=== PATIENT | male | born 1945 | race Caucasian/White ===

== ENCOUNTER 2016-11-20 12:26 | Inpatient (IN) | payer MEDICARE, MEDICAID ==
[~2016-11-20] VITALS: Ht 167.6 cm; Wt 99.6 kg
[~2016-11-20 12:26] MED LIST: ACET-784 PO; AMIO200 PO; ASPI-12 PO; ASPI81TA2 PO; AUD NEB; CARV6 PO; DSS100 PO; FURO20 PO; HEP5KI SQ; IPRNEB IH; MOM30 PO; PANT40TA25 PO; PRED10 PO; TRAM50TA4 PO; ZOLP5 PO
[2016-11-20] MEDS ORDERED: IPRATROPIUM BROMIDE 0.5 MG/2.5 ML NEB SOLUTION NEB ONE (12:30)
[2016-11-20] MEDS ORDERED: ALBUTEROL SULFATE 5 MG/ML 20 ML NEB SOLN [BULK] NEB ONE (12:30)
[2016-11-20] MEDS ORDERED: MethylPREDNISolone SOD SUCC 125 MG/2 ML VIAL IVP ONE (12:45)
[2016-11-20 12:58] LABS: EOSINOPHILS % (AUTO) 9.6 % (1.0-6.0); HEMATOCRIT 43.8 % (41-53); HEMOGLOBIN 14.4 g/dL (13.5-17.5); LYMPHOCYTES # (AUTO) 1.4 K/uL (1.0-4.8); MEAN CORPUSCULAR HEMOGLOBIN 32.3 pg (26.0-34.0); MEAN CORPUSCULAR HGB CONC 32.9 G/dL (31.0-37.0); MEAN CORPUSCULAR VOLUME 98 fL (80-100); MONOCYTES # (AUTO) 0.5 K/uL (0.1-1.0); MONOCYTES % (AUTO) 6.7 % (2.0-9.0); NEUTROPHILS # (AUTO) 4.2 K/uL (1.8-7.7); NEUTROPHILS % (AUTO) 61.7 % (40.0-70.0); PLATELET COUNT (AUTO) 176 K/uL (150-450); RED BLOOD CELL COUNT(AUTO) 4.46 MIL/uL (4.50-5.90); WHITE BLOOD COUNT (AUTO) 6.8 K/uL (4.5-11.0)
[2016-11-20 13:16] LABS: ANION GAP 9 mmol/L (8-16); CALCIUM, TOTAL 8.2 mg/dL (8.8-10.5); CARBON DIOXIDE 27 mmol/L (22-29); CHLORIDE 99 mmol/L (98-107); CREATININE 1.06 mg/dL (0.60-1.30); GLOMERULAR FILTR. RATE CALC > 60 mL/min (>60); POTASSIUM 4.1 mmol/L (3.5-5.1); SODIUM SERUM 135 mmol/L (136-145); UREA NITROGEN, BLOOD 19 mg/dL (7-18)
[2016-11-20 13:32] LABS: B-TYPE NATRIURETIC PEPTIDE 125 pg/mL (0-100)
[2016-11-20 13:43] LABS: ALANINE AMINOTRANSFERASE 18 U/L (12-78); ALBUMIN 4.1 g/dL (3.4-5.0); ASPARTATE AMINOTRANSFERASE 23 U/L (15-37); BILIRUBIN,TOTAL 1.1 mg/dL (0.1-1.0); CREATINE KINASE MB 1.1 ng/mL (0-5); CREATINE KINASE, TOTAL 162 U/L (39-308)
[2016-11-20 13:51] LABS: ABG A-A DIFF O2 308.7 mmHg (10-20.0); ABG BASE EXCESS 1.5 mmol/L (-2.0-3.0); ABG HCO3 25.8 mmol/L (22.0-26.0); ABG OXYHEMOGLOBIN 93.6 % (94.0-100.0); ABG PCO2 38 mmHg (35-45); ABG PH 7.443 (7.35-7.450); TEMPERATURE, FAHRENHEIT, BG 97.9 FAHREN (96.0-98.6)
[2016-11-20 13:52] LABS: ALLEN TEST, BLOOD GAS Positive
[2016-11-20 13:53] LABS: IPAP, BG 14 cm H2O
[2016-11-20] MEDS ORDERED: MORPHINE SULFATE 2 MG/ML SYRINGE ONE (14:58)
[2016-11-20] MEDS ORDERED: ACETAMINOPHEN 500 MG TABLET ONE (16:40)
[2016-11-20] MEDS ORDERED: ONDANSETRON HCL 4 MG/2 ML VIAL IVP PRN (19:00)
[2016-11-20] MEDS ORDERED: MAGNESIUM HYDROXIDE SUSPENSION 30 ML UDCUP PO PRN (19:00)
[2016-11-20] MEDS ORDERED: BISACODYL 10 MG RECTAL RECTAL SUPPOSITORY PR PRN (19:00)
[2016-11-20] MEDS ORDERED: ALBUTEROL SULFATE 2.5 MG/0.5 ML NEB SOLUTION NEB PRN (19:00)
[2016-11-20 20:00] LABS: APPEARANCE,URINE CLOUDY (CLEAR); GLUCOSE, URINE (UA) NEGATIVE (NEGATIVE); KETONES,URINE NEGATIVE (NEGATIVE); LEUKOCYTE ESTERASE ,URINE NEGATIVE (NEGATIVE); OCCULT BLOOD,URINE TRACE (NEGATIVE); PROTEIN,URINE TRACE (NEGATIVE)
[2016-11-20] MEDS: ALBUTEROL SULFATE 2.5 MG/0.5 ML NEB SOLUTION NEB SCH (20:00)
[2016-11-20] MEDS: IPRATROPIUM BROMIDE 0.5 MG/2.5 ML NEB SOLUTION NEB SCH (20:00)
[2016-11-20 20:02] LABS: ADD UA MICROSCOPIC YES
[2016-11-20 20:10] LABS: RBC,URINE None Seen /HPF (0-2); WBC,URINE 0-2 /HPF (0-5)
[2016-11-20 20:36] VITALS: BP 159/93
[2016-11-20] MEDS ORDERED: SODIUM CHLORIDE 0.9% 250 ML IV ONE (22:21)
[2016-11-20] MEDS: AZITHROMYCIN 500 MG/NS 250 ML IV SCH (22:28)
[2016-11-20] MEDS: MethylPREDNISolone SOD SUCC 125 MG/2 ML VIAL IVP SCH (23:22)
[2016-11-20] MEDS: ZOLPIDEM TARTRATE 10 MG TABLET PO PRN (23:22)
[2016-11-20] MEDS: HEPARIN SODIUM,PORCINE 5,000 UNITS/ML VIAL SQ SCH (23:22)
[2016-11-20 23:38] VITALS: BP 150/94
[2016-11-21] VITALS (7 sets, daily range): BP systolic 152–165; BP diastolic 79–99
[2016-11-21] MEDS: IPRATROPIUM BROMIDE 0.5 MG/2.5 ML NEB SOLUTION NEB SCH ×4 (02:24→19:46)
[2016-11-21] MEDS: ALBUTEROL SULFATE 2.5 MG/0.5 ML NEB SOLUTION NEB SCH ×4 (02:24→19:46)
[2016-11-21] MEDS: MethylPREDNISolone SOD SUCC 125 MG/2 ML VIAL IVP SCH ×4 (06:03→23:09)
[2016-11-21] MEDS: ASPIRIN 81 MG CHEWABLE TABLET PO SCH (08:20)
[2016-11-21] MEDS: HEPARIN SODIUM,PORCINE 5,000 UNITS/ML VIAL SQ SCH ×3 (08:20→23:09)
[2016-11-21] MEDS: DOCUSATE SODIUM 100 MG CAPSULE PO SCH ×2 (08:21→20:23)
[2016-11-21] MEDS: FUROSEMIDE 20 MG TABLET PO SCH (08:21)
[2016-11-21] MEDS: CARVEDILOL 6.25 MG TABLET PO SCH ×2 (08:21→20:23)
[2016-11-21] MEDS: PANTOPRAZOLE SODIUM 40 MG DR TABLET PO SCH (08:21)
[2016-11-21] MEDS: ACETAMINOPHEN 325 MG TABLET PO PRN (08:21)
[2016-11-21] MEDS: AMIODARONE HCL 200 MG TABLET PO SCH (08:21)
[2016-11-21] MEDS ORDERED: 0.9% SODIUM CHLORIDE 10 ML SYRINGE IVP PRN (13:30)
[2016-11-21] MEDS: FLUTICASONE/VILANTEROL 100-25 MCG/INH INHALER [14] IH SCH (15:22)
[2016-11-21] MEDS: HydrALAZINE HCL 20 MG/ML VIAL IVP PRN ×2 (15:23→23:10)
[2016-11-21] MEDS ORDERED: BENZONATATE 100 MG CAPSULE PO SCH (16:00)
[2016-11-21] MEDS: BENZONATATE 100 MG CAPSULE PO SCH (20:23)
[2016-11-21] MEDS: OXYGEN THERAPY IH SCH (20:24)
[2016-11-21] MEDS: AZITHROMYCIN 500 MG/NS 250 ML IV SCH (20:32)
[2016-11-21] MEDS: ZOLPIDEM TARTRATE 10 MG TABLET PO PRN (22:22)
[2016-11-22] MEDS: IPRATROPIUM BROMIDE 0.5 MG/2.5 ML NEB SOLUTION NEB SCH ×4 (02:00→20:00)
[2016-11-22] MEDS: ALBUTEROL SULFATE 2.5 MG/0.5 ML NEB SOLUTION NEB SCH ×4 (02:00→20:00)
[2016-11-22 05:21] VITALS: BP 136/74
[2016-11-22] MEDS: MethylPREDNISolone SOD SUCC 125 MG/2 ML VIAL IVP SCH ×4 (06:00→23:44)
[2016-11-22 07:00] LABS: EOSINOPHILS % (AUTO) 0 % (1.0-6.0); HEMATOCRIT 38.3 % (41-53); HEMOGLOBIN 12.5 g/dL (13.5-17.5); LYMPHOCYTES # (AUTO) 0.9 K/uL (1.0-4.8); LYMPHOCYTES % (AUTO) 5.9 % (22.0-44.0); MEAN CORPUSCULAR HEMOGLOBIN 32.3 pg (26.0-34.0); MEAN CORPUSCULAR HGB CONC 32.6 G/dL (31.0-37.0); MEAN CORPUSCULAR VOLUME 99 fL (80-100); MONOCYTES # (AUTO) 0.3 K/uL (0.1-1.0); MONOCYTES % (AUTO) 1.9 % (2.0-9.0); NEUTROPHILS # (AUTO) 13.4 K/uL (1.8-7.7); PLATELET COUNT (AUTO) 136 K/uL (150-450); RED BLOOD CELL COUNT(AUTO) 3.87 MIL/uL (4.50-5.90); RED CELL DISTRIBUTION WIDTH 16.5 % (11.5-14.5); WHITE BLOOD COUNT (AUTO) 14.5 K/uL (4.5-11.0)
[2016-11-22 07:04] LABS: NEUTROPHILS % (AUTO) 92.2 % (40.0-70.0)
[2016-11-22 07:23] LABS: ANION GAP 7 mmol/L (8-16); CALCIUM, TOTAL 7.4 mg/dL (8.8-10.5); CARBON DIOXIDE 28 mmol/L (22-29); CHLORIDE 102 mmol/L (98-107); CREATININE 0.97 mg/dL (0.60-1.30); GLOMERULAR FILTR. RATE CALC > 60 mL/min (>60); PHOSPHORUS 2.8 mg/dL (2.5-4.9); SODIUM SERUM 137 mmol/L (136-145); THYROID STIMULATING HORMONE 1.31 uIU/mL (0.36-3.74); UREA NITROGEN, BLOOD 26 mg/dL (7-18)
[2016-11-22 08:21] VITALS: BP 163/79
[2016-11-22 08:22] LABS: B-TYPE NATRIURETIC PEPTIDE 314 pg/mL (0-100)
[2016-11-22] MEDS: FLUTICASONE/VILANTEROL 100-25 MCG/INH INHALER [14] IH SCH (08:30)
[2016-11-22] MEDS: HEPARIN SODIUM,PORCINE 5,000 UNITS/ML VIAL SQ SCH ×3 (08:30→23:44)
[2016-11-22] MEDS: OXYGEN THERAPY IH SCH ×2 (08:30→20:40)
[2016-11-22] MEDS: DOCUSATE SODIUM 100 MG CAPSULE PO SCH ×2 (08:31→20:47)
[2016-11-22] MEDS: CARVEDILOL 6.25 MG TABLET PO SCH ×2 (08:31→20:47)
[2016-11-22] MEDS: ASPIRIN 81 MG CHEWABLE TABLET PO SCH (08:31)
[2016-11-22] MEDS: FUROSEMIDE 20 MG TABLET PO SCH (08:31)
[2016-11-22] MEDS: PANTOPRAZOLE SODIUM 40 MG DR TABLET PO SCH (08:31)
[2016-11-22] MEDS: AMIODARONE HCL 200 MG TABLET PO SCH (08:31)
[2016-11-22] MEDS: BENZONATATE 100 MG CAPSULE PO SCH ×3 (08:32→20:47)
[2016-11-22] MEDS: ACETAMINOPHEN 325 MG TABLET PO PRN (09:01)
[2016-11-22 11:17] VITALS: BP 152/84
[2016-11-22] MEDS: AmLODIPine BESYLATE 5 MG TABLET PO SCH (11:43)
[2016-11-22 15:41] VITALS: BP 150/86
[2016-11-22 19:41] VITALS: BP 142/75
[2016-11-22] MEDS: ZOLPIDEM TARTRATE 10 MG TABLET PO PRN (22:30)
[2016-11-22] MEDS: AZITHROMYCIN 500 MG/NS 250 ML IV SCH (22:30)
[2016-11-22 23:51] VITALS: BP 154/78
[2016-11-23] MEDS: ALBUTEROL SULFATE 2.5 MG/0.5 ML NEB SOLUTION NEB SCH ×4 (02:00→19:58)
[2016-11-23] MEDS: IPRATROPIUM BROMIDE 0.5 MG/2.5 ML NEB SOLUTION NEB SCH ×4 (02:00→19:58)
[2016-11-23 04:19] VITALS: BP 138/79
[2016-11-23] MEDS: MethylPREDNISolone SOD SUCC 125 MG/2 ML VIAL IVP SCH ×2 (06:12→11:52)
[2016-11-23 07:20] VITALS: BP 160/92
[2016-11-23] MEDS: PANTOPRAZOLE SODIUM 40 MG DR TABLET PO SCH (09:08)
[2016-11-23] MEDS: CARVEDILOL 6.25 MG TABLET PO SCH ×2 (09:08→21:35)
[2016-11-23] MEDS: AMIODARONE HCL 200 MG TABLET PO SCH (09:08)
[2016-11-23] MEDS: AmLODIPine BESYLATE 5 MG TABLET PO SCH (09:08)
[2016-11-23] MEDS: BENZONATATE 100 MG CAPSULE PO SCH ×3 (09:08→21:35)
[2016-11-23] MEDS: HEPARIN SODIUM,PORCINE 5,000 UNITS/ML VIAL SQ SCH ×3 (09:08→23:44)
[2016-11-23] MEDS: ASPIRIN 81 MG CHEWABLE TABLET PO SCH (09:08)
[2016-11-23] MEDS: DOCUSATE SODIUM 100 MG CAPSULE PO SCH ×2 (09:08→21:35)
[2016-11-23] MEDS: FUROSEMIDE 20 MG TABLET PO SCH (09:10)
[2016-11-23] MEDS: FLUTICASONE/VILANTEROL 100-25 MCG/INH INHALER [14] IH SCH (09:11)
[2016-11-23] MEDS: OXYGEN THERAPY IH SCH ×2 (09:11→19:54)
[2016-11-23] MEDS: HydrALAZINE HCL 20 MG/ML VIAL IVP PRN ×2 (09:11→23:41)
[2016-11-23] MEDS: ACETAMINOPHEN 325 MG TABLET PO PRN ×3 (09:21→22:38)
[2016-11-23 11:10] VITALS: BP 144/90
[2016-11-23 15:35] VITALS: BP 139/88
[2016-11-23] MEDS: MethylPREDNISolone SOD SUCC 40 MG/ML VIAL IVP SCH ×2 (17:50→23:41)
[2016-11-23 19:21] VITALS: BP 146/79
[2016-11-23] MEDS: HYDROCODONE/CHLORPHEN POLIS 10-8 MG/5 ML ORAL.SYG PO PRN (21:35)
[2016-11-23] MEDS: ZOLPIDEM TARTRATE 10 MG TABLET PO PRN (21:35)
[2016-11-23] MEDS: AZITHROMYCIN 500 MG/NS 250 ML IV SCH (21:41)
[2016-11-23 23:39] VITALS: BP 151/96
[2016-11-24] MEDS: ALBUTEROL SULFATE 2.5 MG/0.5 ML NEB SOLUTION NEB SCH ×4 (02:00→20:00)
[2016-11-24] MEDS: IPRATROPIUM BROMIDE 0.5 MG/2.5 ML NEB SOLUTION NEB SCH ×4 (02:00→20:00)
[2016-11-24 04:29] VITALS: BP 146/79
[2016-11-24] MEDS: HYDROCODONE/CHLORPHEN POLIS 10-8 MG/5 ML ORAL.SYG PO PRN (05:55)
[2016-11-24] MEDS: OxyCODONE HCL/ACETAMINOPHEN 5-325 MG TABLET PO PRN (05:55)
[2016-11-24] MEDS: MethylPREDNISolone SOD SUCC 40 MG/ML VIAL IVP SCH (05:55)
[2016-11-24 07:18] VITALS: BP 141/80
[2016-11-24] MEDS: HEPARIN SODIUM,PORCINE 5,000 UNITS/ML VIAL SQ SCH ×3 (07:53→23:48)
[2016-11-24] MEDS: OXYGEN THERAPY IH SCH ×2 (07:53→20:56)
[2016-11-24] MEDS: FUROSEMIDE 20 MG TABLET PO SCH (09:27)
[2016-11-24] MEDS: PredniSONE 20 MG TABLET PO SCH (09:28)
[2016-11-24] MEDS: AMIODARONE HCL 200 MG TABLET PO SCH (09:28)
[2016-11-24] MEDS: PANTOPRAZOLE SODIUM 40 MG DR TABLET PO SCH (09:28)
[2016-11-24] MEDS: AmLODIPine BESYLATE 5 MG TABLET PO SCH (09:28)
[2016-11-24] MEDS: ASPIRIN 81 MG CHEWABLE TABLET PO SCH (09:28)
[2016-11-24] MEDS: CARVEDILOL 6.25 MG TABLET PO SCH ×2 (09:28→20:56)
[2016-11-24] MEDS: FLUTICASONE/VILANTEROL 100-25 MCG/INH INHALER [14] IH SCH (09:29)
[2016-11-24] MEDS: BENZONATATE 100 MG CAPSULE PO SCH ×3 (09:29→20:56)
[2016-11-24] MEDS: DOCUSATE SODIUM 100 MG CAPSULE PO SCH ×2 (09:29→20:56)
[2016-11-24 11:25] VITALS: BP 146/79
[2016-11-24 15:37] VITALS: BP 141/79
[2016-11-24 19:25] VITALS: BP 131/83
[2016-11-24] MEDS ORDERED: IOVERSOL 320 MG/ML 100 ML VIAL ONE (20:01)
[2016-11-24] MEDS ORDERED: SODIUM CHLORIDE 0.9% 100 ML ONE (20:01)
[2016-11-24] MEDS ORDERED: SODIUM CHLORIDE 0.9% 250 ML IV ONE (20:53)
[2016-11-24] MEDS: AZITHROMYCIN 500 MG/NS 250 ML IV SCH (20:56)
[2016-11-24] MEDS: DOXYCYCLINE 100 MG CAPSULE PO SCH (20:56)
[2016-11-24] MEDS: ZOLPIDEM TARTRATE 10 MG TABLET PO PRN (22:38)
[2016-11-24 23:17] VITALS: BP 141/82
[2016-11-25] MEDS: IPRATROPIUM BROMIDE 0.5 MG/2.5 ML NEB SOLUTION NEB SCH ×4 (02:00→20:00)
[2016-11-25] MEDS: ALBUTEROL SULFATE 2.5 MG/0.5 ML NEB SOLUTION NEB SCH ×4 (02:00→20:00)
[2016-11-25 04:30] VITALS: BP 155/81
[2016-11-25 07:13] VITALS: BP 154/87
[2016-11-25 08:25] LABS: BASOPHILS % (AUTO) 0.2 % (0.0-2.0); EOSINOPHILS % (AUTO) 0 % (1.0-6.0); HEMATOCRIT 37.5 % (41-53); HEMOGLOBIN 12.3 g/dL (13.5-17.5); LYMPHOCYTES # (AUTO) 0.9 K/uL (1.0-4.8); LYMPHOCYTES % (AUTO) 11.3 % (22.0-44.0); MEAN CORPUSCULAR HEMOGLOBIN 32.5 pg (26.0-34.0); MEAN CORPUSCULAR HGB CONC 32.8 G/dL (31.0-37.0); MEAN CORPUSCULAR VOLUME 99 fL (80-100); MONOCYTES # (AUTO) 0.5 K/uL (0.1-1.0); MONOCYTES % (AUTO) 6.5 % (2.0-9.0); NEUTROPHILS # (AUTO) 6.9 K/uL (1.8-7.7); PLATELET COUNT (AUTO) 134 K/uL (150-450); RED BLOOD CELL COUNT(AUTO) 3.79 MIL/uL (4.50-5.90); RED CELL DISTRIBUTION WIDTH 15.7 % (11.5-14.5); WHITE BLOOD COUNT (AUTO) 8.4 K/uL (4.5-11.0)
[2016-11-25 08:36] LABS: ANION GAP 6 mmol/L (8-16); CALCIUM, TOTAL 7.2 mg/dL (8.8-10.5); CARBON DIOXIDE 31 mmol/L (22-29); CHLORIDE 101 mmol/L (98-107); POTASSIUM 3.8 mmol/L (3.5-5.1); SODIUM SERUM 138 mmol/L (136-145); UREA NITROGEN, BLOOD 33 mg/dL (7-18)
[2016-11-25] MEDS: DOCUSATE SODIUM 100 MG CAPSULE PO SCH ×2 (08:38→20:45)
[2016-11-25] MEDS: HEPARIN SODIUM,PORCINE 5,000 UNITS/ML VIAL SQ SCH ×2 (08:38→16:07)
[2016-11-25] MEDS: OXYGEN THERAPY IH SCH ×2 (08:38→20:46)
[2016-11-25] MEDS: FLUTICASONE/VILANTEROL 100-25 MCG/INH INHALER [14] IH SCH (08:38)
[2016-11-25] MEDS: FUROSEMIDE 20 MG TABLET PO SCH (08:39)
[2016-11-25] MEDS: AmLODIPine BESYLATE 5 MG TABLET PO SCH (08:39)
[2016-11-25] MEDS: AMIODARONE HCL 200 MG TABLET PO SCH (08:39)
[2016-11-25] MEDS: BENZONATATE 100 MG CAPSULE PO SCH ×3 (08:39→20:46)
[2016-11-25] MEDS: ASPIRIN 81 MG CHEWABLE TABLET PO SCH (08:39)
[2016-11-25] MEDS: CARVEDILOL 6.25 MG TABLET PO SCH ×2 (08:39→20:45)
[2016-11-25] MEDS: DOXYCYCLINE 100 MG CAPSULE PO SCH ×2 (08:40→20:46)
[2016-11-25] MEDS: PredniSONE 20 MG TABLET PO SCH (08:40)
[2016-11-25] MEDS: PANTOPRAZOLE SODIUM 40 MG DR TABLET PO SCH (08:43)
[2016-11-25 08:45] LABS: CREATININE 0.97 mg/dL (0.60-1.30); GLOMERULAR FILTR. RATE CALC > 60 mL/min (>60)
[2016-11-25] MEDS: ACETAMINOPHEN 325 MG TABLET PO PRN (09:22)
[2016-11-25 12:01] VITALS: BP 153/85
[2016-11-25 17:23] VITALS: BP 153/85
[2016-11-25 19:45] VITALS: BP 144/86
[2016-11-25] MEDS: AZITHROMYCIN 500 MG/NS 250 ML IV SCH (20:46)
[2016-11-25] MEDS: ZOLPIDEM TARTRATE 10 MG TABLET PO PRN (22:14)
[2016-11-26] VITALS (7 sets, daily range): BP systolic 138–173; BP diastolic 81–99
[2016-11-26] MEDS: HEPARIN SODIUM,PORCINE 5,000 UNITS/ML VIAL SQ SCH ×3 (01:38→16:23)
[2016-11-26] MEDS: IPRATROPIUM BROMIDE 0.5 MG/2.5 ML NEB SOLUTION NEB SCH ×4 (02:00→20:00)
[2016-11-26] MEDS: ALBUTEROL SULFATE 2.5 MG/0.5 ML NEB SOLUTION NEB SCH ×4 (02:00→20:00)
[2016-11-26 06:27] LABS: BASOPHILS % (AUTO) 0.2 % (0.0-2.0); EOSINOPHILS % (AUTO) 0.1 % (1.0-6.0); HEMATOCRIT 37.9 % (41-53); HEMOGLOBIN 12.4 g/dL (13.5-17.5); LYMPHOCYTES # (AUTO) 1.7 K/uL (1.0-4.8); MEAN CORPUSCULAR HEMOGLOBIN 32.2 pg (26.0-34.0); MEAN CORPUSCULAR HGB CONC 32.6 G/dL (31.0-37.0); MEAN CORPUSCULAR VOLUME 99 fL (80-100); MONOCYTES # (AUTO) 0.6 K/uL (0.1-1.0); MONOCYTES % (AUTO) 8.2 % (2.0-9.0); NEUTROPHILS # (AUTO) 5.5 K/uL (1.8-7.7); NEUTROPHILS % (AUTO) 69.5 % (40.0-70.0); PLATELET COUNT (AUTO) 129 K/uL (150-450); RED BLOOD CELL COUNT(AUTO) 3.84 MIL/uL (4.50-5.90); RED CELL DISTRIBUTION WIDTH 16.2 % (11.5-14.5); WHITE BLOOD COUNT (AUTO) 7.9 K/uL (4.5-11.0)
[2016-11-26 06:54] LABS: ANION GAP 4 mmol/L (8-16); CALCIUM, TOTAL 7.1 mg/dL (8.8-10.5); CARBON DIOXIDE 33 mmol/L (22-29); CHLORIDE 99 mmol/L (98-107); CREATININE 0.96 mg/dL (0.60-1.30); GLOMERULAR FILTR. RATE CALC > 60 mL/min (>60); POTASSIUM 3.8 mmol/L (3.5-5.1); SODIUM SERUM 136 mmol/L (136-145); UREA NITROGEN, BLOOD 27 mg/dL (7-18)
[2016-11-26] MEDS: OXYGEN THERAPY IH SCH ×2 (08:00→20:00)
[2016-11-26] MEDS: FLUTICASONE/VILANTEROL 100-25 MCG/INH INHALER [14] IH SCH (08:57)
[2016-11-26] MEDS: ACETAMINOPHEN 325 MG TABLET PO PRN ×2 (08:59→16:21)
[2016-11-26] MEDS: DOCUSATE SODIUM 100 MG CAPSULE PO SCH ×3 (08:59→20:16)
[2016-11-26] MEDS: CARVEDILOL 6.25 MG TABLET PO SCH ×2 (08:59→21:58)
[2016-11-26] MEDS: BENZONATATE 100 MG CAPSULE PO SCH ×3 (08:59→20:14)
[2016-11-26] MEDS: ASPIRIN 81 MG CHEWABLE TABLET PO SCH (09:00)
[2016-11-26] MEDS: PredniSONE 20 MG TABLET PO SCH (09:00)
[2016-11-26] MEDS: DOXYCYCLINE 100 MG CAPSULE PO SCH ×2 (09:00→21:02)
[2016-11-26] MEDS: PANTOPRAZOLE SODIUM 40 MG DR TABLET PO SCH (09:00)
[2016-11-26] MEDS: AmLODIPine BESYLATE 5 MG TABLET PO SCH (09:00)
[2016-11-26] MEDS: AMIODARONE HCL 200 MG TABLET PO SCH (09:00)
[2016-11-26] MEDS: FUROSEMIDE 20 MG TABLET PO SCH (09:00)
[2016-11-26] MEDS ORDERED: HYDROCODONE/CHLORPHEN POLIS 10-8 MG/5 ML ORAL.SYG PO PRN (11:00)
[2016-11-26] MEDS: OxyCODONE HCL/ACETAMINOPHEN 5-325 MG TABLET PO PRN (20:14)
[2016-11-26] MEDS ORDERED: SODIUM CHLORIDE 0.9% 250 ML IV ONE (20:56)
[2016-11-26] MEDS: AZITHROMYCIN 500 MG/NS 250 ML IV SCH (21:58)
[2016-11-26] MEDS: ZOLPIDEM TARTRATE 10 MG TABLET PO PRN (22:01)
[2016-11-27] MEDS: HEPARIN SODIUM,PORCINE 5,000 UNITS/ML VIAL SQ SCH ×4 (00:22→23:48)
[2016-11-27 00:25] VITALS: BP 142/73
[2016-11-27] MEDS: ALBUTEROL SULFATE 2.5 MG/0.5 ML NEB SOLUTION NEB SCH ×4 (02:00→20:00)
[2016-11-27] MEDS: IPRATROPIUM BROMIDE 0.5 MG/2.5 ML NEB SOLUTION NEB SCH ×4 (02:00→20:00)
[2016-11-27 04:14] VITALS: BP 141/92
[2016-11-27 06:51] LABS: BASOPHILS % (AUTO) 0.2 % (0.0-2.0); EOSINOPHILS % (AUTO) 0.4 % (1.0-6.0); HEMATOCRIT 37.5 % (41-53); HEMOGLOBIN 12.3 g/dL (13.5-17.5); LYMPHOCYTES # (AUTO) 2.1 K/uL (1.0-4.8); LYMPHOCYTES % (AUTO) 24.5 % (22.0-44.0); MEAN CORPUSCULAR HEMOGLOBIN 32.4 pg (26.0-34.0); MEAN CORPUSCULAR HGB CONC 32.7 G/dL (31.0-37.0); MEAN CORPUSCULAR VOLUME 99 fL (80-100); MONOCYTES # (AUTO) 0.7 K/uL (0.1-1.0); NEUTROPHILS # (AUTO) 5.8 K/uL (1.8-7.7); NEUTROPHILS % (AUTO) 66.9 % (40.0-70.0); PLATELET COUNT (AUTO) 132 K/uL (150-450); RED BLOOD CELL COUNT(AUTO) 3.79 MIL/uL (4.50-5.90); RED CELL DISTRIBUTION WIDTH 15.4 % (11.5-14.5); WHITE BLOOD COUNT (AUTO) 8.7 K/uL (4.5-11.0)
[2016-11-27 07:26] LABS: ANION GAP 4 mmol/L (8-16); CALCIUM, TOTAL 7.2 mg/dL (8.8-10.5); CARBON DIOXIDE 33 mmol/L (22-29); CHLORIDE 98 mmol/L (98-107); CREATININE 0.98 mg/dL (0.60-1.30); GLOMERULAR FILTR. RATE CALC > 60 mL/min (>60); SODIUM SERUM 135 mmol/L (136-145); UREA NITROGEN, BLOOD 22 mg/dL (7-18)
[2016-11-27] MEDS: BENZONATATE 100 MG CAPSULE PO SCH ×3 (07:54→20:07)
[2016-11-27] MEDS: FLUTICASONE/VILANTEROL 100-25 MCG/INH INHALER [14] IH SCH (07:54)
[2016-11-27] MEDS: PANTOPRAZOLE SODIUM 40 MG DR TABLET PO SCH (07:55)
[2016-11-27] MEDS: PredniSONE 20 MG TABLET PO SCH (07:55)
[2016-11-27] MEDS: ASPIRIN 81 MG CHEWABLE TABLET PO SCH (07:56)
[2016-11-27] MEDS: AmLODIPine BESYLATE 5 MG TABLET PO SCH (07:56)
[2016-11-27] MEDS: CARVEDILOL 6.25 MG TABLET PO SCH ×2 (07:57→20:07)
[2016-11-27] MEDS: DOXYCYCLINE 100 MG CAPSULE PO SCH ×2 (07:57→20:07)
[2016-11-27] MEDS: AMIODARONE HCL 200 MG TABLET PO SCH (07:58)
[2016-11-27 08:00] VITALS: BP 167/95
[2016-11-27] MEDS: OXYGEN THERAPY IH SCH ×2 (08:00→20:00)
[2016-11-27] MEDS: FUROSEMIDE 20 MG TABLET PO SCH (09:00)
[2016-11-27 11:46] VITALS: BP 150/81
[2016-11-27] MEDS: ACETAMINOPHEN 325 MG TABLET PO PRN (12:03)
[2016-11-27 15:21] VITALS: BP 150/91
[2016-11-27] MEDS: DOCUSATE SODIUM 100 MG CAPSULE PO SCH (20:10)
[2016-11-27 20:43] VITALS: BP 148/86
[2016-11-27] MEDS: AZITHROMYCIN 500 MG/NS 250 ML IV SCH (21:06)
[2016-11-27] MEDS: OxyCODONE HCL/ACETAMINOPHEN 5-325 MG TABLET PO PRN (22:27)
[2016-11-27] MEDS: ZOLPIDEM TARTRATE 10 MG TABLET PO PRN (22:27)
[2016-11-28 00:05] VITALS: BP 138/74
[2016-11-28] MEDS: IPRATROPIUM BROMIDE 0.5 MG/2.5 ML NEB SOLUTION NEB SCH ×2 (02:00→08:00)
[2016-11-28] MEDS: ALBUTEROL SULFATE 2.5 MG/0.5 ML NEB SOLUTION NEB SCH ×2 (02:00→08:00)
[2016-11-28 05:00] VITALS: BP 151/72
[2016-11-28 07:35] VITALS: BP 149/89
[2016-11-28] MEDS: PANTOPRAZOLE SODIUM 40 MG DR TABLET PO SCH (07:44)
[2016-11-28] MEDS: HEPARIN SODIUM,PORCINE 5,000 UNITS/ML VIAL SQ SCH (07:44)
[2016-11-28] MEDS: PredniSONE 20 MG TABLET PO SCH (07:44)
[2016-11-28] MEDS: DOCUSATE SODIUM 100 MG CAPSULE PO SCH (07:44)
[2016-11-28] MEDS: BENZONATATE 100 MG CAPSULE PO SCH (07:44)
[2016-11-28] MEDS: ASPIRIN 81 MG CHEWABLE TABLET PO SCH (07:44)
[2016-11-28] MEDS: AMIODARONE HCL 200 MG TABLET PO SCH (07:45)
[2016-11-28] MEDS: CARVEDILOL 6.25 MG TABLET PO SCH (07:45)
[2016-11-28] MEDS: FLUTICASONE/VILANTEROL 100-25 MCG/INH INHALER [14] IH SCH (07:45)
[2016-11-28] MEDS: DOXYCYCLINE 100 MG CAPSULE PO SCH (07:45)
[2016-11-28] MEDS: AmLODIPine BESYLATE 5 MG TABLET PO SCH (07:45)
[2016-11-28] MEDS: OXYGEN THERAPY IH SCH (08:00)
[2016-11-28] MEDS: FUROSEMIDE 20 MG TABLET PO SCH (09:00)
[2016-11-28] MEDS ORDERED: PERCT PO (10:14)
[2016-11-28] MEDS ORDERED: AMLO5TAB66 PO (10:14)
[2016-11-28] MEDS ORDERED: DOXY100C2 PO (10:14)
[2016-11-28 11:28] VITALS: BP 141/80
== END 2016-11-28 12:50 | disposition home or self-care (01) | DRG 291 ==
LOC: EMS 12:28 → 5N 18:58 → 4E 11-26 13:02
PROVIDERS: ADMIT Hospitalist; ATTEND Hospitalist
PROC: 5A09357 Assistance with Respiratory Ventilation, Less than 24 Consecutive Hours, Continuous Positive Airway Pressure (ICD-10-PCS; principal; 2016-11-20)
DX: I11.0 Hypertensive heart disease with heart failure (principal); J96.01 Acute respiratory failure with hypoxia; J44.1 Chronic obstructive pulmonary disease with (acute) exacerbation; J44.0 Chronic obstructive pulmonary disease with (acute) lower respiratory infection; I50.33 Acute on chronic diastolic (congestive) heart failure; I42.9 Cardiomyopathy, unspecified; F17.210 Nicotine dependence, cigarettes, uncomplicated; I48.2 Chronic atrial fibrillation; I25.10 Atherosclerotic heart disease of native coronary artery without angina pectoris; Z96.652 Presence of left artificial knee joint; E66.01 Morbid (severe) obesity due to excess calories; M48.02 Spinal stenosis, cervical region; J20.9 Acute bronchitis, unspecified; Z82.49 Family history of ischemic heart disease and other diseases of the circulatory system; Z79.01 Long term (current) use of anticoagulants; Z79.82 Long term (current) use of aspirin; Z79.51 Long term (current) use of inhaled steroids; Z79.899 Other long term (current) drug therapy; Z95.0 Presence of cardiac pacemaker; Z68.35 Body mass index [BMI] 35.0-35.9, adult
CPT/HCPCS: 70486; 71260; 82805; 83735; 84100; 84443; 87040; 87081; 87086; 93005; 94060; 94640; 94644; 94660; 96374; 99291; J0360; J0456; J1644; J2270; J2920; J2930; J7050

== ENCOUNTER 2017-01-09 11:56 | Inpatient (IN) | payer MEDICARE, MEDICAID ==
[~2017-01-09] VITALS: Ht 182.9 cm; Wt 100.7 kg
[~2017-01-09 11:56] MED LIST changes: +AMLO5TAB66 PO; -ASPI-12 PO; +DOXY100C2 PO; -HEP5KI SQ; -MOM30 PO; -PANT40TA25 PO; +PERCT PO; -TRAM50TA4 PO
[2017-01-09] MEDS ORDERED: ALBU8HFA IH (12:17)
[2017-01-09] MEDS ORDERED: ACETAMINOPHEN 325 MG TABLET PO ONE (12:30)
[2017-01-09] MEDS ORDERED: IPRATROPIUM BROMIDE 0.5 MG/2.5 ML NEB SOLUTION NEB ONE (12:30)
[2017-01-09] MEDS ORDERED: MethylPREDNISolone SOD SUCC 125 MG/2 ML VIAL IVP ONE (12:30)
[2017-01-09] MEDS ORDERED: ALBUTEROL SULFATE 5 MG/ML 20 ML NEB SOLN [BULK] NEB ONE (12:30)
[2017-01-09 12:44] LABS: BASOPHILS % (AUTO) 0.4 % (0.0-2.0); HEMATOCRIT 41.3 % (41-53); HEMOGLOBIN 13.5 g/dL (13.5-17.5); LYMPHOCYTES # (AUTO) 1.3 K/uL (1.0-4.8); LYMPHOCYTES % (AUTO) 26.1 % (22.0-44.0); MEAN CORPUSCULAR HEMOGLOBIN 32.7 pg (26.0-34.0); MEAN CORPUSCULAR HGB CONC 32.7 G/dL (31.0-37.0); MEAN CORPUSCULAR VOLUME 100 fL (80-100); MONOCYTES # (AUTO) 0.4 K/uL (0.1-1.0); MONOCYTES % (AUTO) 8.5 % (2.0-9.0); NEUTROPHILS # (AUTO) 2.1 K/uL (1.8-7.7); NEUTROPHILS % (AUTO) 42.8 % (40.0-70.0); PLATELET COUNT (AUTO) 136 K/uL (150-450); RED BLOOD CELL COUNT(AUTO) 4.12 MIL/uL (4.50-5.90); RED CELL DISTRIBUTION WIDTH 15.1 % (11.5-14.5)
[2017-01-09 12:45] LABS: EOSINOPHILS % (AUTO) 22.2 % (1.0-6.0)
[2017-01-09 12:54] LABS: ANION GAP 7 mmol/L (8-16); CALCIUM, TOTAL 8.4 mg/dL (8.8-10.5); CARBON DIOXIDE 31 mmol/L (22-29); CHLORIDE 100 mmol/L (98-107); CREATININE 1.08 mg/dL (0.60-1.30); GLOMERULAR FILTR. RATE CALC > 60 mL/min (>60); SODIUM SERUM 138 mmol/L (136-145); UREA NITROGEN, BLOOD 20 mg/dL (7-18)
[2017-01-09 13:03] LABS: B-TYPE NATRIURETIC PEPTIDE 144 pg/mL (0-100)
[2017-01-09 13:06] LABS: RBC MORPHOLOGY COMMENT ABNORMAL RBC MORPH
[2017-01-09 13:13] LABS: INFLUENZA TYPE B NEGATIVE FOR TYPE B (NEGATIVE)
[2017-01-09 13:18] LABS: ALANINE AMINOTRANSFERASE 22 U/L (12-78); ALBUMIN 3.8 g/dL (3.4-5.0); ASPARTATE AMINOTRANSFERASE 17 U/L (15-37); BILIRUBIN,TOTAL 1.6 mg/dL (0.1-1.0); CREATINE KINASE MB 1.3 ng/mL (0-5); CREATINE KINASE, TOTAL 105 U/L (39-308); TOTAL PROTEIN, SERUM 6.5 g/dL (6.4-8.2)
[2017-01-09] MEDS ORDERED: AZITHROMYCIN 500 MG/NS 250 ML IV ONE (14:00)
[2017-01-09] MEDS ORDERED: CefTRIAXone 1 GM/DEXTROSE 50 ML IV ONE (14:00)
[2017-01-09 14:07] LABS: APPEARANCE,URINE CLEAR (CLEAR); GLUCOSE, URINE (UA) NEGATIVE (NEGATIVE); KETONES,URINE NEGATIVE (NEGATIVE); LEUKOCYTE ESTERASE ,URINE NEGATIVE (NEGATIVE); OCCULT BLOOD,URINE NEGATIVE (NEGATIVE); PH,URINE 5.5 (5.0-8.0); PROTEIN,URINE NEGATIVE (NEGATIVE)
[2017-01-09 14:10] LABS: ADD UA MICROSCOPIC NO
[2017-01-09] MEDS ORDERED: ONDANSETRON HCL 4 MG/2 ML VIAL IVP PRN ×2 (14:15→23:45)
[2017-01-09] MEDS ORDERED: ACETAMINOPHEN 325 MG TABLET PO PRN ×2 (14:15→23:45)
[2017-01-09 15:34] VITALS: BP 154/79
[2017-01-09] MEDS: ALBUTEROL SULFATE 2.5 MG/0.5 ML NEB SOLUTION NEB SCH ×4 (15:39→23:45)
[2017-01-09] MEDS: IPRATROPIUM BROMIDE 0.5 MG/2.5 ML NEB SOLUTION NEB SCH ×4 (15:39→23:45)
[2017-01-09 19:28] VITALS: BP 127/60
[2017-01-09] MEDS: ZOLPIDEM TARTRATE 5 MG TABLET PO SCH (23:15)
[2017-01-09 23:40] VITALS: BP 124/69
[2017-01-09] MEDS ORDERED: ALBUTEROL SULFATE 2.5 MG/0.5 ML NEB SOLUTION NEB PRN (23:45)
[2017-01-09] MEDS ORDERED: MORPHINE SULFATE 2 MG/ML SYRINGE IVP PRN (23:45)
[2017-01-09] MEDS ORDERED: HYDROCODONE/ACETAMINOPHEN 5-325 MG TABLET PO PRN (23:45)
[2017-01-09] MEDS ORDERED: IPRATROPIUM BROMIDE 0.5 MG/2.5 ML NEB SOLUTION NEB PRN (23:45)
[2017-01-09] MEDS ORDERED: MAGNESIUM HYDROXIDE SUSPENSION 30 ML UDCUP PO PRN (23:45)
[2017-01-09] MEDS ORDERED: ZOLPIDEM TARTRATE 5 MG TABLET PO PRN ×2 (23:45)
[2017-01-09] MEDS ORDERED: BISACODYL 10 MG RECTAL RECTAL SUPPOSITORY PR PRN (23:45)
[2017-01-10] MEDS: CARVEDILOL 6.25 MG TABLET PO SCH ×3 (00:31→21:45)
[2017-01-10] MEDS: MethylPREDNISolone SOD SUCC 125 MG/2 ML VIAL IVP SCH ×4 (00:31→18:16)
[2017-01-10] MEDS: HEPARIN SODIUM,PORCINE 5,000 UNITS/ML VIAL SQ SCH ×3 (00:32→16:17)
[2017-01-10] MEDS: IPRATROPIUM BROMIDE 0.5 MG/2.5 ML NEB SOLUTION NEB SCH ×7 (02:35→22:59)
[2017-01-10] MEDS: ALBUTEROL SULFATE 2.5 MG/0.5 ML NEB SOLUTION NEB SCH ×7 (02:36→22:59)
[2017-01-10 04:39] VITALS: BP 122/81
[2017-01-10 07:41] VITALS: BP 131/72
[2017-01-10] MEDS: FUROSEMIDE 20 MG TABLET PO SCH (08:59)
[2017-01-10] MEDS: AMIODARONE HCL 200 MG TABLET PO SCH (08:59)
[2017-01-10] MEDS: DOCUSATE SODIUM 100 MG CAPSULE PO SCH ×2 (08:59→21:46)
[2017-01-10] MEDS: OxyCODONE HCL/ACETAMINOPHEN 5-325 MG TABLET PO PRN ×2 (09:06→21:46)
[2017-01-10] MEDS: GuaiFENesin/CODEINE [SUGAR FREE] 200-20MG/10 ML SYRUP UDCUP PO PRN (09:06)
[2017-01-10] MEDS: AmLODIPine BESYLATE 2.5 MG TABLET PO SCH (10:26)
[2017-01-10 11:12] VITALS: BP 156/78
[2017-01-10 16:06] VITALS: BP 141/79
[2017-01-10 20:03] VITALS: BP 127/73
[2017-01-10] MEDS: ZOLPIDEM TARTRATE 5 MG TABLET PO SCH (21:46)
[2017-01-11 00:01] VITALS: BP 136/71
[2017-01-11] MEDS: HEPARIN SODIUM,PORCINE 5,000 UNITS/ML VIAL SQ SCH ×3 (00:59→16:19)
[2017-01-11] MEDS: MethylPREDNISolone SOD SUCC 125 MG/2 ML VIAL IVP SCH ×4 (01:00→18:06)
[2017-01-11] MEDS: IPRATROPIUM BROMIDE 0.5 MG/2.5 ML NEB SOLUTION NEB SCH ×6 (02:57→23:00)
[2017-01-11] MEDS: ALBUTEROL SULFATE 2.5 MG/0.5 ML NEB SOLUTION NEB SCH ×6 (02:58→23:00)
[2017-01-11 05:15] VITALS: BP 135/63
[2017-01-11] MEDS: GuaiFENesin/CODEINE [SUGAR FREE] 200-20MG/10 ML SYRUP UDCUP PO PRN (05:21)
[2017-01-11 07:17] VITALS: BP 136/77
[2017-01-11] MEDS: FUROSEMIDE 20 MG TABLET PO SCH ×2 (09:00→09:06)
[2017-01-11] MEDS: DOCUSATE SODIUM 100 MG CAPSULE PO SCH ×2 (09:05→22:17)
[2017-01-11] MEDS: CARVEDILOL 6.25 MG TABLET PO SCH ×2 (09:05→22:17)
[2017-01-11] MEDS: AMIODARONE HCL 200 MG TABLET PO SCH (09:05)
[2017-01-11] MEDS: AmLODIPine BESYLATE 2.5 MG TABLET PO SCH (09:09)
[2017-01-11] MEDS: OxyCODONE HCL/ACETAMINOPHEN 5-325 MG TABLET PO PRN ×2 (09:09→22:18)
[2017-01-11 11:36] VITALS: BP 133/81
[2017-01-11 15:01] VITALS: BP 144/89
[2017-01-11 20:24] VITALS: BP 133/83
[2017-01-11] MEDS: ZOLPIDEM TARTRATE 5 MG TABLET PO SCH (22:18)
[2017-01-12] VITALS (8 sets, daily range): BP systolic 110–161; BP diastolic 63–100
[2017-01-12] MEDS: MethylPREDNISolone SOD SUCC 125 MG/2 ML VIAL IVP SCH ×5 (00:09→23:55)
[2017-01-12] MEDS: HEPARIN SODIUM,PORCINE 5,000 UNITS/ML VIAL SQ SCH ×4 (00:09→23:55)
[2017-01-12] MEDS: IPRATROPIUM BROMIDE 0.5 MG/2.5 ML NEB SOLUTION NEB SCH ×7 (03:00→23:00)
[2017-01-12] MEDS: ALBUTEROL SULFATE 2.5 MG/0.5 ML NEB SOLUTION NEB SCH ×7 (03:00→23:00)
[2017-01-12] MEDS: GuaiFENesin/CODEINE [SUGAR FREE] 200-20MG/10 ML SYRUP UDCUP PO PRN (04:57)
[2017-01-12] MEDS: AMIODARONE HCL 200 MG TABLET PO SCH (08:59)
[2017-01-12] MEDS: CARVEDILOL 6.25 MG TABLET PO SCH ×2 (08:59→20:25)
[2017-01-12] MEDS: DOCUSATE SODIUM 100 MG CAPSULE PO SCH ×2 (08:59→20:26)
[2017-01-12] MEDS: FUROSEMIDE 20 MG TABLET PO SCH (09:00)
[2017-01-12] MEDS: AmLODIPine BESYLATE 2.5 MG TABLET PO SCH (09:00)
[2017-01-12] MEDS: OxyCODONE HCL/ACETAMINOPHEN 5-325 MG TABLET PO PRN ×2 (09:16→20:25)
[2017-01-12] MEDS: ZOLPIDEM TARTRATE 5 MG TABLET PO SCH (20:25)
[2017-01-13 05:00] VITALS: BP 142/83
[2017-01-13] MEDS: MethylPREDNISolone SOD SUCC 125 MG/2 ML VIAL IVP SCH ×2 (05:41→12:00)
[2017-01-13 07:25] VITALS: BP 146/85
[2017-01-13] MEDS: HEPARIN SODIUM,PORCINE 5,000 UNITS/ML VIAL SQ SCH ×2 (08:26→16:00)
[2017-01-13] MEDS: CARVEDILOL 6.25 MG TABLET PO SCH (08:26)
[2017-01-13] MEDS: AMIODARONE HCL 200 MG TABLET PO SCH (08:26)
[2017-01-13] MEDS: DOCUSATE SODIUM 100 MG CAPSULE PO SCH (08:27)
[2017-01-13] MEDS: OxyCODONE HCL/ACETAMINOPHEN 5-325 MG TABLET PO PRN (08:27)
[2017-01-13] MEDS: FUROSEMIDE 20 MG TABLET PO SCH (08:27)
[2017-01-13] MEDS: AmLODIPine BESYLATE 2.5 MG TABLET PO SCH (08:27)
[2017-01-13 11:12] VITALS: BP 145/67
[2017-01-13 15:28] VITALS: BP 161/87
[2017-01-13] MEDS ORDERED: PredniSONE 20 MG TABLET PO ONE (16:15)
[2017-01-13] MEDS ORDERED: AMLO-511 PO (17:10)
[2017-01-13] MEDS ORDERED: FLUT1AER PO (17:10)
[2017-01-13] MEDS ORDERED: PRED5 PO (17:12)
[2017-01-14] MEDS ORDERED: PredniSONE 20 MG TABLET PO SCH (09:00)
== END 2017-01-13 19:00 | disposition home or self-care (01) | DRG 189 ==
LOC: EMS 11:58 → 5S 14:14
PROVIDERS: ADMIT Hospitalist; ATTEND Hospitalist
DX: J96.00 Acute respiratory failure, unspecified whether with hypoxia or hypercapnia (principal); J44.1 Chronic obstructive pulmonary disease with (acute) exacerbation; I11.0 Hypertensive heart disease with heart failure; G89.29 Other chronic pain; I50.9 Heart failure, unspecified; I48.91 Unspecified atrial fibrillation; I25.10 Atherosclerotic heart disease of native coronary artery without angina pectoris; Z96.653 Presence of artificial knee joint, bilateral; F17.210 Nicotine dependence, cigarettes, uncomplicated; G31.89 Other specified degenerative diseases of nervous system; M54.2 Cervicalgia; Z95.1 Presence of aortocoronary bypass graft; Z79.899 Other long term (current) drug therapy
CPT/HCPCS: 72125; 87040; 87081; 87804; 93005; 94640; 94644; 96365; 96375; 99285; J0456; J0696; J1644; J2930

== ENCOUNTER 2017-11-14 13:06 | Emergency (ER) | payer MEDICAID, MEDICARE ==
[~2017-11-14] VITALS: Ht 182.9 cm; Wt 102.5 kg
[~2017-11-14 13:06] MED LIST changes: -ACET-784 PO; +AMLO-511 PO; -ASPI81TA2 PO; -AUD NEB; -DOXY100C2 PO; -DSS100 PO; +FLUT1AER PO; -IPRNEB IH; -PRED10 PO; +PRED5 PO
[2017-11-14 14:13] VITALS: BP 127/76
[2017-11-14] MEDS ORDERED: OxyCODONE HCL/ACETAMINOPHEN 5-325 MG TABLET PO ONE (14:15)
== END 2017-11-14 14:53 | disposition home or self-care (01) ==
LOC: EMS 13:08
DX: M48.02 Spinal stenosis, cervical region (principal); M47.022 Vertebral artery compression syndromes, cervical region; I11.0 Hypertensive heart disease with heart failure; I50.9 Heart failure, unspecified; I25.10 Atherosclerotic heart disease of native coronary artery without angina pectoris; J44.9 Chronic obstructive pulmonary disease, unspecified; G89.29 Other chronic pain; I48.91 Unspecified atrial fibrillation; F17.210 Nicotine dependence, cigarettes, uncomplicated; Z95.0 Presence of cardiac pacemaker
CPT/HCPCS: 99283

== ENCOUNTER 2017-12-17 17:45 | Inpatient (IN) | payer MEDICARE, MEDICAID ==
[~2017-12-17] VITALS: Ht 182.9 cm; Wt 90.7 kg
[~2017-12-17 17:45] MED LIST changes: +ACET-2247 PO; -AMLO5TAB66 PO; +AMOX1TAB16 PO; +ATOR20TA86 PO; +AUD NEB; +BACL10TA PO; +DIPH25 PO; +DSS100 PO; -FLUT1AER PO; -FURO20 PO; +HEPA500018 SQ; +MOM30 PO; +OXYC-530 PO; -PRED5 PO; +TRAM50TA4 PO; -ZOLP5 PO
[2017-12-17 18:00] VITALS: BP 148/70
[2017-12-17] MEDS ORDERED: DOCUSATE SODIUM 283 MG/5 ML MINI-ENEMA PR PRN (19:30)
[2017-12-17] MEDS ORDERED: ALBUTEROL SULFATE 2.5 MG/0.5 ML NEB SOLUTION NEB PRN (19:30)
[2017-12-17] MEDS ORDERED: MAGNESIUM HYDROXIDE SUSPENSION 30 ML UDCUP PO PRN (19:30)
[2017-12-17] MEDS ORDERED: TEMAZEPAM 15 MG CAPSULE PO PRN (19:30)
[2017-12-17] MEDS: CARVEDILOL 6.25 MG TABLET PO SCH (20:37)
[2017-12-17] MEDS: SENNA 187 MG TABLET PO SCH (20:37)
[2017-12-17] MEDS: HEPARIN SODIUM,PORCINE 5,000 UNITS/ML VIAL SQ SCH (20:37)
[2017-12-17] MEDS: DOCUSATE SODIUM 100 MG CAPSULE PO SCH (20:37)
[2017-12-17] MEDS: OxyCODONE HCL/ACETAMINOPHEN 5-325 MG TABLET PO PRN (20:40)
[2017-12-18 02:21] LABS: APPEARANCE,URINE CLEAR (CLEAR); BILIRUBIN,URINE NEGATIVE (NEGATIVE); GLUCOSE, URINE (UA) 100 mg/dL (NEGATIVE); KETONES,URINE NEGATIVE (NEGATIVE); LEUKOCYTE ESTERASE ,URINE NEGATIVE (NEGATIVE); NITRATE,URINE NEGATIVE (NEGATIVE); OCCULT BLOOD,URINE NEGATIVE (NEGATIVE); PROTEIN,URINE NEGATIVE (NEGATIVE)
[2017-12-18 02:32] LABS: BACTERIA,URINE None Seen /HPF (None Seen); RBC,URINE 0-2 /HPF (0-2); WBC,URINE None Seen /HPF (0-5)
[2017-12-18 03:07] VITALS: BP 132/74
[2017-12-18 06:39] LABS: EOSINOPHILS % (AUTO) 10.9 % (1.0-6.0); HEMATOCRIT 37.7 % (41-53); HEMOGLOBIN 12.9 g/dL (13.5-17.5); LYMPHOCYTES # (AUTO) 1.6 K/uL (1.0-4.8); LYMPHOCYTES % (AUTO) 38.7 % (22.0-44.0); MEAN CORPUSCULAR HEMOGLOBIN 33.3 pg (26.0-34.0); MEAN CORPUSCULAR HGB CONC 34.2 G/dL (31.0-37.0); MEAN CORPUSCULAR VOLUME 98 fL (80-100); MONOCYTES # (AUTO) 0.4 K/uL (0.1-1.0); MONOCYTES % (AUTO) 9.7 % (2.0-9.0); NEUTROPHILS # (AUTO) 1.7 K/uL (1.8-7.7); NEUTROPHILS % (AUTO) 39.7 % (40.0-70.0); PLATELET COUNT (AUTO) 137 K/uL (150-450); RED BLOOD CELL COUNT(AUTO) 3.86 MIL/uL (4.50-5.90)
[2017-12-18 06:56] LABS: ALANINE AMINOTRANSFERASE 19 U/L (12-78); ALBUMIN 3.5 g/dL (3.4-5.0); ALKALINE PHOSPHATASE 37 U/L (46-116); ANION GAP 5 mmol/L (8-16); ASPARTATE AMINOTRANSFERASE 19 U/L (15-37); BILIRUBIN,TOTAL 1.7 mg/dL (0.1-1.0); CALCIUM, TOTAL 8.3 mg/dL (8.8-10.5); CARBON DIOXIDE 31 mmol/L (22-29); CHLORIDE 100 mmol/L (98-107); CREATININE 0.97 mg/dL (0.60-1.30); GLOMERULAR FILTR. RATE CALC > 60 mL/min (>60); GLUCOSE,RANDOM 87 mg/dL (70-110); POTASSIUM 3.8 mmol/L (3.5-5.1); SODIUM SERUM 136 mmol/L (136-145); TOTAL PROTEIN, SERUM 5.8 g/dL (6.4-8.2); UREA NITROGEN, BLOOD 14 mg/dL (7-18)
[2017-12-18 08:30] VITALS: BP 148/88
[2017-12-18] MEDS: ASPIRIN 81 MG CHEWABLE TABLET PO SCH (09:34)
[2017-12-18] MEDS: DOCUSATE SODIUM 100 MG CAPSULE PO SCH ×2 (09:35→21:10)
[2017-12-18] MEDS: HEPARIN SODIUM,PORCINE 5,000 UNITS/ML VIAL SQ SCH ×3 (09:35→21:10)
[2017-12-18] MEDS: ATORVASTATIN CALCIUM 20 MG TABLET PO SCH (09:35)
[2017-12-18] MEDS: CARVEDILOL 6.25 MG TABLET PO SCH ×2 (09:35→21:10)
[2017-12-18] MEDS: ACETAMINOPHEN 325 MG TABLET PO PRN (09:45)
[2017-12-18 15:10] VITALS: BP 138/76
[2017-12-18] MEDS: SENNA 187 MG TABLET PO SCH (21:10)
[2017-12-19 00:33] VITALS: BP 131/76
[2017-12-19 08:12] VITALS: BP 126/71
[2017-12-19] MEDS: HEPARIN SODIUM,PORCINE 5,000 UNITS/ML VIAL SQ SCH ×3 (09:17→20:18)
[2017-12-19] MEDS: ASPIRIN 81 MG CHEWABLE TABLET PO SCH (09:17)
[2017-12-19] MEDS: PANTOPRAZOLE SODIUM 40 MG DR TABLET PO SCH (09:18)
[2017-12-19] MEDS: DOCUSATE SODIUM 100 MG CAPSULE PO SCH ×2 (09:18→20:18)
[2017-12-19] MEDS: ATORVASTATIN CALCIUM 20 MG TABLET PO SCH (09:18)
[2017-12-19] MEDS: CARVEDILOL 6.25 MG TABLET PO SCH ×2 (09:18→20:18)
[2017-12-19] MEDS: ACETAMINOPHEN 325 MG TABLET PO PRN (09:26)
[2017-12-19 16:11] VITALS: BP 134/81
[2017-12-19 20:14] VITALS: BP 104/56
[2017-12-19] MEDS: SENNA 187 MG TABLET PO SCH (20:18)
[2017-12-19] MEDS: OxyCODONE HCL/ACETAMINOPHEN 5-325 MG TABLET PO PRN (22:32)
[2017-12-19 23:31] VITALS: BP 130/75
[2017-12-20 07:23] LABS: ANION GAP 5 mmol/L (8-16); CALCIUM, TOTAL 8.4 mg/dL (8.8-10.5); CARBON DIOXIDE 31 mmol/L (22-29); CHLORIDE 102 mmol/L (98-107); CREATININE 1.03 mg/dL (0.60-1.30); GLOMERULAR FILTR. RATE CALC > 60 mL/min (>60); GLUCOSE,RANDOM 82 mg/dL (70-110); POTASSIUM 4.1 mmol/L (3.5-5.1); SODIUM SERUM 138 mmol/L (136-145); UREA NITROGEN, BLOOD 23 mg/dL (7-18)
[2017-12-20 07:25] LABS: B-TYPE NATRIURETIC PEPTIDE 119 pg/mL (0-100)
[2017-12-20 07:30] VITALS: BP 142/83
[2017-12-20] MEDS: HEPARIN SODIUM,PORCINE 5,000 UNITS/ML VIAL SQ SCH ×3 (08:20→20:11)
[2017-12-20] MEDS: CARVEDILOL 6.25 MG TABLET PO SCH ×2 (08:21→20:12)
[2017-12-20] MEDS: DOCUSATE SODIUM 100 MG CAPSULE PO SCH ×2 (08:21→20:12)
[2017-12-20] MEDS: ATORVASTATIN CALCIUM 20 MG TABLET PO SCH (08:21)
[2017-12-20] MEDS: ASPIRIN 81 MG CHEWABLE TABLET PO SCH (08:21)
[2017-12-20] MEDS: PANTOPRAZOLE SODIUM 40 MG DR TABLET PO SCH (08:21)
[2017-12-20] MEDS: CHOLECALCIFEROL (VIT D3) 1,000 UNITS TABLET PO SCH (11:46)
[2017-12-20 15:55] VITALS: BP 134/70
[2017-12-20 15:57] VITALS: BP 119/66
[2017-12-20 20:10] VITALS: BP 132/73
[2017-12-20] MEDS: SENNA 187 MG TABLET PO SCH (20:12)
[2017-12-20] MEDS: OxyCODONE HCL/ACETAMINOPHEN 5-325 MG TABLET PO PRN (21:30)
[2017-12-21] VITALS (7 sets, daily range): BP systolic 112–129; BP diastolic 63–77
[2017-12-21] MEDS: ATORVASTATIN CALCIUM 20 MG TABLET PO SCH (09:26)
[2017-12-21] MEDS: DOCUSATE SODIUM 100 MG CAPSULE PO SCH ×2 (09:26→21:04)
[2017-12-21] MEDS: PANTOPRAZOLE SODIUM 40 MG DR TABLET PO SCH (09:26)
[2017-12-21] MEDS: CHOLECALCIFEROL (VIT D3) 1,000 UNITS TABLET PO SCH (09:26)
[2017-12-21] MEDS: HEPARIN SODIUM,PORCINE 5,000 UNITS/ML VIAL SQ SCH ×2 (09:26→21:05)
[2017-12-21] MEDS: ASPIRIN 81 MG CHEWABLE TABLET PO SCH (09:27)
[2017-12-21] MEDS: CARVEDILOL 6.25 MG TABLET PO SCH ×2 (09:27→21:04)
[2017-12-21] MEDS: ACETAMINOPHEN 325 MG TABLET PO PRN (09:27)
[2017-12-21] MEDS: SENNA 187 MG TABLET PO SCH (21:04)
[2017-12-22 08:02] VITALS: BP 130/72
[2017-12-22 08:03] VITALS: BP 118/78
[2017-12-22 08:05] VITALS: BP 113/69
[2017-12-22] MEDS: DOCUSATE SODIUM 100 MG CAPSULE PO SCH ×2 (08:42→19:37)
[2017-12-22] MEDS: CHOLECALCIFEROL (VIT D3) 1,000 UNITS TABLET PO SCH (08:42)
[2017-12-22] MEDS: ATORVASTATIN CALCIUM 20 MG TABLET PO SCH (08:42)
[2017-12-22] MEDS: PANTOPRAZOLE SODIUM 40 MG DR TABLET PO SCH (08:42)
[2017-12-22] MEDS: HEPARIN SODIUM,PORCINE 5,000 UNITS/ML VIAL SQ SCH ×2 (08:43→19:37)
[2017-12-22] MEDS: ASPIRIN 81 MG CHEWABLE TABLET PO SCH (08:43)
[2017-12-22] MEDS: CARVEDILOL 6.25 MG TABLET PO SCH ×2 (08:43→19:37)
[2017-12-22] MEDS: ACETAMINOPHEN 325 MG TABLET PO PRN (08:46)
[2017-12-22 16:05] VITALS: BP 127/68
[2017-12-22] MEDS: SENNA 187 MG TABLET PO SCH (19:36)
[2017-12-22] MEDS: OxyCODONE HCL/ACETAMINOPHEN 5-325 MG TABLET PO PRN (21:32)
[2017-12-23 00:47] VITALS: BP 111/56
[2017-12-23 07:39] VITALS: BP 135/80
[2017-12-23] MEDS: CARVEDILOL 6.25 MG TABLET PO SCH ×2 (09:09→20:54)
[2017-12-23] MEDS: ATORVASTATIN CALCIUM 20 MG TABLET PO SCH (09:10)
[2017-12-23] MEDS: DOCUSATE SODIUM 100 MG CAPSULE PO SCH ×2 (09:10→20:52)
[2017-12-23] MEDS: PANTOPRAZOLE SODIUM 40 MG DR TABLET PO SCH (09:10)
[2017-12-23] MEDS: CHOLECALCIFEROL (VIT D3) 1,000 UNITS TABLET PO SCH (09:10)
[2017-12-23] MEDS: HEPARIN SODIUM,PORCINE 5,000 UNITS/ML VIAL SQ SCH ×2 (09:10→20:52)
[2017-12-23 15:10] VITALS: BP 113/60
[2017-12-23 15:12] VITALS: BP 120/71
[2017-12-23 15:17] VITALS: BP 105/66
[2017-12-23 20:47] VITALS: BP 104/60
[2017-12-23] MEDS: SENNA 187 MG TABLET PO SCH (20:52)
[2017-12-23] MEDS: OxyCODONE HCL/ACETAMINOPHEN 5-325 MG TABLET PO PRN (20:54)
[2017-12-24] VITALS (14 sets, daily range): BP systolic 89–141; BP diastolic 39–84
[2017-12-24] MEDS: PANTOPRAZOLE SODIUM 40 MG DR TABLET PO SCH (08:11)
[2017-12-24] MEDS: DOCUSATE SODIUM 100 MG CAPSULE PO SCH ×2 (08:11→20:57)
[2017-12-24] MEDS: ATORVASTATIN CALCIUM 20 MG TABLET PO SCH (08:11)
[2017-12-24] MEDS: HEPARIN SODIUM,PORCINE 5,000 UNITS/ML VIAL SQ SCH ×2 (08:11→20:57)
[2017-12-24] MEDS: CHOLECALCIFEROL (VIT D3) 1,000 UNITS TABLET PO SCH (08:11)
[2017-12-24] MEDS: CARVEDILOL 6.25 MG TABLET PO SCH ×2 (08:11→20:57)
[2017-12-24] MEDS: OxyCODONE HCL/ACETAMINOPHEN 5-325 MG TABLET PO PRN (20:57)
[2017-12-24] MEDS: SENNA 187 MG TABLET PO SCH (20:57)
[2017-12-25] VITALS (8 sets, daily range): BP systolic 99–134; BP diastolic 62–74
[2017-12-25] MEDS: CHOLECALCIFEROL (VIT D3) 1,000 UNITS TABLET PO SCH (08:30)
[2017-12-25] MEDS: DOCUSATE SODIUM 100 MG CAPSULE PO SCH ×2 (08:30→20:02)
[2017-12-25] MEDS: ACETAMINOPHEN 325 MG TABLET PO PRN (08:30)
[2017-12-25] MEDS: PANTOPRAZOLE SODIUM 40 MG DR TABLET PO SCH (08:30)
[2017-12-25] MEDS: ATORVASTATIN CALCIUM 20 MG TABLET PO SCH (08:30)
[2017-12-25] MEDS: HEPARIN SODIUM,PORCINE 5,000 UNITS/ML VIAL SQ SCH ×2 (08:30→20:02)
[2017-12-25] MEDS: CARVEDILOL 6.25 MG TABLET PO SCH ×2 (08:31→20:02)
[2017-12-25] MEDS: SENNA 187 MG TABLET PO SCH (20:02)
[2017-12-25] MEDS: OxyCODONE HCL/ACETAMINOPHEN 5-325 MG TABLET PO PRN (21:31)
[2017-12-26] VITALS (10 sets, daily range): BP systolic 109–143; BP diastolic 56–97
[2017-12-26 06:52] LABS: ANION GAP 3 mmol/L (8-16); CALCIUM, TOTAL 8.1 mg/dL (8.8-10.5); CARBON DIOXIDE 31 mmol/L (22-29); CHLORIDE 103 mmol/L (98-107); CREATININE 1.11 mg/dL (0.60-1.30); GLOMERULAR FILTR. RATE CALC > 60 mL/min (>60); GLUCOSE,RANDOM 84 mg/dL (70-110); SODIUM SERUM 137 mmol/L (136-145); UREA NITROGEN, BLOOD 31 mg/dL (7-18)
[2017-12-26 06:55] LABS: B-TYPE NATRIURETIC PEPTIDE 172 pg/mL (0-100)
[2017-12-26] MEDS: CHOLECALCIFEROL (VIT D3) 1,000 UNITS TABLET PO SCH (08:03)
[2017-12-26] MEDS: ATORVASTATIN CALCIUM 20 MG TABLET PO SCH (08:03)
[2017-12-26] MEDS: PANTOPRAZOLE SODIUM 40 MG DR TABLET PO SCH (08:03)
[2017-12-26] MEDS: CARVEDILOL 6.25 MG TABLET PO SCH ×2 (08:03→20:24)
[2017-12-26] MEDS: DOCUSATE SODIUM 100 MG CAPSULE PO SCH ×2 (08:04→20:24)
[2017-12-26] MEDS: HEPARIN SODIUM,PORCINE 5,000 UNITS/ML VIAL SQ SCH ×2 (08:04→20:24)
[2017-12-26] MEDS: ACETAMINOPHEN 325 MG TABLET PO PRN (09:40)
[2017-12-26] MEDS: SENNA 187 MG TABLET PO SCH (20:24)
[2017-12-26] MEDS: OxyCODONE HCL/ACETAMINOPHEN 5-325 MG TABLET PO PRN (21:37)
[2017-12-27] VITALS (10 sets, daily range): BP systolic 84–144; BP diastolic 48–78
[2017-12-27] MEDS: DOCUSATE SODIUM 100 MG CAPSULE PO SCH ×2 (08:40→20:44)
[2017-12-27] MEDS: CHOLECALCIFEROL (VIT D3) 1,000 UNITS TABLET PO SCH (08:40)
[2017-12-27] MEDS: ASPIRIN 81 MG CHEWABLE TABLET PO SCH (08:40)
[2017-12-27] MEDS: PANTOPRAZOLE SODIUM 40 MG DR TABLET PO SCH (08:40)
[2017-12-27] MEDS: HEPARIN SODIUM,PORCINE 5,000 UNITS/ML VIAL SQ SCH ×2 (08:41→20:45)
[2017-12-27] MEDS: ATORVASTATIN CALCIUM 20 MG TABLET PO SCH (08:41)
[2017-12-27] MEDS: CARVEDILOL 6.25 MG TABLET PO SCH ×2 (08:41→20:44)
[2017-12-27] MEDS: SENNA 187 MG TABLET PO SCH (20:44)
[2017-12-27] MEDS: OxyCODONE HCL/ACETAMINOPHEN 5-325 MG TABLET PO PRN (20:47)
[2017-12-28] VITALS (9 sets, daily range): BP systolic 111–143; BP diastolic 63–85
[2017-12-28] MEDS: CARVEDILOL 6.25 MG TABLET PO SCH ×2 (08:28→20:03)
[2017-12-28] MEDS: CHOLECALCIFEROL (VIT D3) 1,000 UNITS TABLET PO SCH (08:28)
[2017-12-28] MEDS: HEPARIN SODIUM,PORCINE 5,000 UNITS/ML VIAL SQ SCH ×2 (08:28→20:04)
[2017-12-28] MEDS: PANTOPRAZOLE SODIUM 40 MG DR TABLET PO SCH (08:29)
[2017-12-28] MEDS: ATORVASTATIN CALCIUM 20 MG TABLET PO SCH (08:29)
[2017-12-28] MEDS: ASPIRIN 81 MG CHEWABLE TABLET PO SCH (08:29)
[2017-12-28] MEDS: DOCUSATE SODIUM 100 MG CAPSULE PO SCH ×2 (08:29→20:03)
[2017-12-28] MEDS: ACETAMINOPHEN 325 MG TABLET PO PRN (08:30)
[2017-12-28] MEDS: SENNA 187 MG TABLET PO SCH (20:03)
[2017-12-28] MEDS: OxyCODONE HCL/ACETAMINOPHEN 5-325 MG TABLET PO PRN (20:03)
[2017-12-29 08:00] VITALS: BP_SYST 101; BP_SYST 127; BP_SYST 138; BP_DIAS 63; BP_DIAS 66; BP_DIAS 81
[2017-12-29] MEDS: ASPIRIN 81 MG CHEWABLE TABLET PO SCH (08:22)
[2017-12-29] MEDS: PANTOPRAZOLE SODIUM 40 MG DR TABLET PO SCH (08:22)
[2017-12-29] MEDS: ATORVASTATIN CALCIUM 20 MG TABLET PO SCH (08:22)
[2017-12-29] MEDS: CHOLECALCIFEROL (VIT D3) 1,000 UNITS TABLET PO SCH (08:22)
[2017-12-29] MEDS: HEPARIN SODIUM,PORCINE 5,000 UNITS/ML VIAL SQ SCH ×2 (08:22→20:28)
[2017-12-29] MEDS: CARVEDILOL 6.25 MG TABLET PO SCH ×2 (08:22→20:28)
[2017-12-29] MEDS: DOCUSATE SODIUM 100 MG CAPSULE PO SCH ×2 (08:22→20:27)
[2017-12-29] MEDS: ACETAMINOPHEN 325 MG TABLET PO PRN (10:29)
[2017-12-29 15:00] VITALS: BP_SYST 118; BP_SYST 123; BP_SYST 129; BP_DIAS 60; BP_DIAS 66; BP_DIAS 76
[2017-12-29 20:27] VITALS: BP 128/76
[2017-12-29] MEDS: SENNA 187 MG TABLET PO SCH (20:27)
[2017-12-29] MEDS: OxyCODONE HCL/ACETAMINOPHEN 5-325 MG TABLET PO PRN (20:28)
[2017-12-30] VITALS: BP 123/67
[2017-12-30 07:11] VITALS: BP_SYST 112; BP_SYST 137; BP_SYST 138; BP_DIAS 62
[2017-12-30] MEDS: CARVEDILOL 6.25 MG TABLET PO SCH ×2 (08:26→20:28)
[2017-12-30] MEDS: ACETAMINOPHEN 325 MG TABLET PO PRN (08:26)
[2017-12-30] MEDS: ATORVASTATIN CALCIUM 20 MG TABLET PO SCH (08:26)
[2017-12-30] MEDS: DOCUSATE SODIUM 100 MG CAPSULE PO SCH ×2 (08:26→20:28)
[2017-12-30] MEDS: ASPIRIN 81 MG CHEWABLE TABLET PO SCH (08:27)
[2017-12-30] MEDS: HEPARIN SODIUM,PORCINE 5,000 UNITS/ML VIAL SQ SCH ×2 (08:27→20:28)
[2017-12-30] MEDS: PANTOPRAZOLE SODIUM 40 MG DR TABLET PO SCH (08:27)
[2017-12-30] MEDS: CHOLECALCIFEROL (VIT D3) 1,000 UNITS TABLET PO SCH (08:29)
[2017-12-30] MEDS ORDERED: ASPI-1188 PO (13:48)
[2017-12-30] MEDS ORDERED: PANT40TA25 PO (13:48)
[2017-12-30] MEDS ORDERED: VITAD1000 PO (13:48)
[2017-12-30 15:37] VITALS: BP_SYST 103; BP_SYST 111; BP_SYST 114; BP_DIAS 59; BP_DIAS 63; BP_DIAS 69
[2017-12-30 20:25] VITALS: BP 116/65
[2017-12-30] MEDS: SENNA 187 MG TABLET PO SCH (20:28)
[2017-12-30] MEDS: OxyCODONE HCL/ACETAMINOPHEN 5-325 MG TABLET PO PRN (20:28)
[2017-12-31 04:00] VITALS: BP 137/80
[2017-12-31 08:30] VITALS: BP_SYST 130; BP_SYST 143; BP_SYST 145; BP_DIAS 69; BP_DIAS 83
[2017-12-31] MEDS: CARVEDILOL 6.25 MG TABLET PO SCH (08:52)
[2017-12-31] MEDS: ATORVASTATIN CALCIUM 20 MG TABLET PO SCH (08:52)
[2017-12-31] MEDS: HEPARIN SODIUM,PORCINE 5,000 UNITS/ML VIAL SQ SCH (08:52)
[2017-12-31] MEDS: CHOLECALCIFEROL (VIT D3) 1,000 UNITS TABLET PO SCH (08:52)
[2017-12-31] MEDS: ASPIRIN 81 MG CHEWABLE TABLET PO SCH (08:53)
[2017-12-31] MEDS: PANTOPRAZOLE SODIUM 40 MG DR TABLET PO SCH (08:53)
[2017-12-31] MEDS: DOCUSATE SODIUM 100 MG CAPSULE PO SCH (08:53)
== END 2017-12-31 14:30 | disposition home or self-care (01) | DRG 552 ==
LOC: 2WR 17:45
PROVIDERS: ADMIT Physical Medicine & Rehabilitation; ATTEND Physical Medicine & Rehabilitation
DX: M51.34 Other intervertebral disc degeneration, thoracic region (principal); I48.0 Paroxysmal atrial fibrillation; I07.1 Rheumatic tricuspid insufficiency; I42.9 Cardiomyopathy, unspecified; I50.9 Heart failure, unspecified; I11.0 Hypertensive heart disease with heart failure; J44.9 Chronic obstructive pulmonary disease, unspecified; E55.9 Vitamin D deficiency, unspecified; I25.10 Atherosclerotic heart disease of native coronary artery without angina pectoris; Z96.653 Presence of artificial knee joint, bilateral; Z82.49 Family history of ischemic heart disease and other diseases of the circulatory system; F17.210 Nicotine dependence, cigarettes, uncomplicated; E78.5 Hyperlipidemia, unspecified; I49.5 Sick sinus syndrome; L60.0 Ingrowing nail; M47.9 Spondylosis, unspecified; S51.819A Laceration without foreign body of unspecified forearm, initial encounter; Z91.81 History of falling; Z95.810 Presence of automatic (implantable) cardiac defibrillator; W45.8XXA Other foreign body or object entering through skin, initial encounter; Y93.89 Activity, other specified; Y92.89 Other specified places as the place of occurrence of the external cause; Y99.8 Other external cause status; R27.0 Ataxia, unspecified; M54.2 Cervicalgia
CPT/HCPCS: 72128; 72131; 82306; 83735; 87081; 93005; 93306; 97110; 97116; 97150; 97163; 97165; 97530; 97535; 99366; J1644

== ENCOUNTER 2018-02-07 02:28 | Inpatient (IN) | payer MEDICARE, MEDICAID ==
[~2018-02-07] VITALS: Ht 175.3 cm; Wt 92.7 kg
[~2018-02-07 02:28] MED LIST changes: -AMIO200 PO; -AMLO-511 PO; -AMOX1TAB16 PO; +ASPI-1188 PO; -AUD NEB; -BACL10TA PO; -DIPH25 PO; -HEPA500018 SQ; -MOM30 PO; +PANT40TA25 PO; -PERCT PO; -TRAM50TA4 PO; +VITAD1000 PO
[2018-02-07] MEDS ORDERED: CeFAZolin 1 GM/DEXTROSE 10 ML IV ONE (03:30)
[2018-02-07] MEDS ORDERED: CeFAZolin 1 GM/DEXTROSE 50 ML IV ONE (03:30)
[2018-02-07] MEDS ORDERED: ACETAMINOPHEN 500 MG TABLET PO ONE (03:30)
[2018-02-07 04:23] LABS: BASOPHILS % (AUTO) 0.1 % (0.0-2.0); EOSINOPHILS % (AUTO) 0.2 % (1.0-6.0); HEMATOCRIT 43.5 % (41-53); HEMOGLOBIN 14.7 g/dL (13.5-17.5); LYMPHOCYTES # (AUTO) 1.8 K/uL (1.0-4.8); LYMPHOCYTES % (AUTO) 6.1 % (22.0-44.0); MEAN CORPUSCULAR HGB CONC 33.7 G/dL (31.0-37.0); MEAN CORPUSCULAR VOLUME 98 fL (80-100); MONOCYTES # (AUTO) 0.2 K/uL (0.1-1.0); MONOCYTES % (AUTO) 0.6 % (2.0-9.0); NEUTROPHILS # (AUTO) 27.1 K/uL (1.8-7.7); PLATELET COUNT (AUTO) 160 K/uL (150-450); RED BLOOD CELL COUNT(AUTO) 4.44 MIL/uL (4.50-5.90); RED CELL DISTRIBUTION WIDTH 14.9 % (11.5-14.5)
[2018-02-07 04:35] LABS: ANION GAP 7 mmol/L (8-16); CALCIUM, TOTAL 7.3 mg/dL (8.8-10.5); CARBON DIOXIDE 30 mmol/L (22-29); CHLORIDE 102 mmol/L (98-107); CREATININE 1.27 mg/dL (0.60-1.30); GLOMERULAR FILTR. RATE CALC 55 mL/min (>60); GLUCOSE,RANDOM 83 mg/dL (70-110); POTASSIUM 4.3 mmol/L (3.5-5.1); SODIUM SERUM 139 mmol/L (136-145); UREA NITROGEN, BLOOD 27 mg/dL (7-18)
[2018-02-07] MEDS ORDERED: 0.9% SODIUM CHLORIDE 10 ML SYRINGE IVP PRN ×2 (04:45→07:45)
[2018-02-07] MEDS ORDERED: ACETAMINOPHEN 325 MG TABLET PO PRN (04:45)
[2018-02-07] MEDS ORDERED: ONDANSETRON HCL 4 MG/2 ML VIAL IVP PRN ×2 (04:45→07:45)
[2018-02-07] MEDS ORDERED: SULFAMETHOX/TRIMETH 20 ML in DEXTROSE 5%-WATER 250 ML IV ONE (04:45)
[2018-02-07 04:49] LABS: ALANINE AMINOTRANSFERASE 44 U/L (12-78); ALBUMIN 3.2 g/dL (3.4-5.0); ALKALINE PHOSPHATASE 44 U/L (46-116); ASPARTATE AMINOTRANSFERASE 28 U/L (15-37); TOTAL PROTEIN, SERUM 5.3 g/dL (6.4-8.2)
[2018-02-07] MEDS ORDERED: IOVERSOL 350 MG/ML 100 ML VIAL ONE (04:56)
[2018-02-07] MEDS ORDERED: SODIUM CHLORIDE 0.9% 2,000 ML IV ONE (05:30)
[2018-02-07 06:00] VITALS: BP 113/60
[2018-02-07] MEDS ORDERED: SODIUM CHLORIDE 0.9% 250 ML IV ONE (06:08)
[2018-02-07 07:40] VITALS: BP 94/60
[2018-02-07] MEDS ORDERED: IPRATROPIUM BROMIDE 0.5 MG/2.5 ML NEB SOLUTION NEB PRN (07:45)
[2018-02-07] MEDS ORDERED: ALBUTEROL SULFATE 2.5 MG/0.5 ML NEB SOLUTION NEB PRN (07:45)
[2018-02-07] MEDS ORDERED: ZOLPIDEM TARTRATE 5 MG TABLET PO PRN (07:45)
[2018-02-07] MEDS ORDERED: CefTRIAXone SODIUM 1 GM in DEXTROSE 5%-WATER 10 ML IV SCH (08:00)
[2018-02-07] MEDS: DOCUSATE SODIUM 100 MG CAPSULE PO SCH ×2 (08:31→20:36)
[2018-02-07] MEDS: CHOLECALCIFEROL (VIT D3) 1,000 UNITS TABLET PO SCH (08:32)
[2018-02-07] MEDS: PANTOPRAZOLE SODIUM 40 MG DR TABLET PO SCH (08:32)
[2018-02-07] MEDS: ASPIRIN 81 MG EC TABLET PO SCH (08:32)
[2018-02-07] MEDS: ATORVASTATIN CALCIUM 20 MG TABLET PO SCH (08:32)
[2018-02-07 08:43] LABS: C-REACTIVE PROTEIN QUANT < 0.05 mg/dL (0.00-0.30)
[2018-02-07 08:44] LABS: ERYTHROCYTE SEDIMENTATION RATE 8 MM/HR (0-15)
[2018-02-07] MEDS: CARVEDILOL 6.25 MG TABLET PO SCH ×2 (09:00→21:00)
[2018-02-07 11:44] VITALS: BP 90/50
[2018-02-07] MEDS ORDERED: *CLINICAL-LEVOFLOXACIN ORAL DOSING CLINICAL ONE (15:15)
[2018-02-07 15:38] VITALS: BP 106/62
[2018-02-07] MEDS: ACETAMINOPHEN 325 MG TABLET PO PRN ×2 (15:55→22:07)
[2018-02-07] MEDS ORDERED: VANCOMYCIN HCL 1.5 GM in DEXTROSE 5%-WATER 250 ML IV ONE (16:00)
[2018-02-07] MEDS: LEVOFLOXACIN 500 MG TABLET PO SCH (16:59)
[2018-02-07 19:37] VITALS: BP 99/51
[2018-02-07] MEDS: ALBUTEROL SULFATE 2.5 MG/0.5 ML NEB SOLUTION NEB SCH (20:00)
[2018-02-07] MEDS: IPRATROPIUM BROMIDE 0.5 MG/2.5 ML NEB SOLUTION NEB SCH (20:00)
[2018-02-07 23:29] VITALS: BP 101/59
[2018-02-08] MEDS: ALBUTEROL SULFATE 2.5 MG/0.5 ML NEB SOLUTION NEB SCH ×4 (02:22→19:20)
[2018-02-08] MEDS: IPRATROPIUM BROMIDE 0.5 MG/2.5 ML NEB SOLUTION NEB SCH ×4 (02:22→19:20)
[2018-02-08 04:00] VITALS: BP 110/58
[2018-02-08 06:06] LABS: HEMATOCRIT 36.4 % (41-53); HEMOGLOBIN 12.5 g/dL (13.5-17.5); MEAN CORPUSCULAR HEMOGLOBIN 33.1 pg (26.0-34.0); MEAN CORPUSCULAR HGB CONC 34.4 G/dL (31.0-37.0); MEAN CORPUSCULAR VOLUME 96 fL (80-100); PLATELET COUNT (AUTO) 100 K/uL (150-450); RED BLOOD CELL COUNT(AUTO) 3.78 MIL/uL (4.50-5.90); RED CELL DISTRIBUTION WIDTH 15.1 % (11.5-14.5)
[2018-02-08 06:14] LABS: CALCIUM, TOTAL 7.1 mg/dL (8.8-10.5); CREATININE 1.3 mg/dL (0.60-1.30); POTASSIUM 3.9 mmol/L (3.5-5.1)
[2018-02-08 06:44] LABS: BAND NEUTROPHILS % (MANUAL) 13 % (0-5); LYMPHOCYTES % (MANUAL) 11 % (22-44); MONOCYTES % (MANUAL) 2 % (2-9); REACTIVE LYMPHOCYTES 1 % (0-0); SEGMENTED NEUTROPHILS % 73 % (40-70)
[2018-02-08] MEDS: PANTOPRAZOLE SODIUM 40 MG DR TABLET PO SCH (06:46)
[2018-02-08 07:16] VITALS: BP 111/60
[2018-02-08] MEDS: CHOLECALCIFEROL (VIT D3) 1,000 UNITS TABLET PO SCH (07:55)
[2018-02-08] MEDS: ATORVASTATIN CALCIUM 20 MG TABLET PO SCH (07:55)
[2018-02-08] MEDS: ASPIRIN 81 MG EC TABLET PO SCH (07:55)
[2018-02-08] MEDS: LEVOFLOXACIN 500 MG TABLET PO SCH (07:56)
[2018-02-08] MEDS: DOCUSATE SODIUM 100 MG CAPSULE PO SCH ×2 (07:56→20:05)
[2018-02-08] MEDS: VANCOMYCIN HCL 1 GM/D5% WATER 200 ML IV SCH ×2 (07:56→21:11)
[2018-02-08] MEDS: CARVEDILOL 6.25 MG TABLET PO SCH ×2 (09:00→20:04)
[2018-02-08] MEDS ORDERED: SODIUM CHLORIDE 0.9% 500 ML IV ONE (10:37)
[2018-02-08 11:00] VITALS: BP 112/60
[2018-02-08 15:38] VITALS: BP 104/58
[2018-02-08 19:43] VITALS: BP 111/56
[2018-02-08] MEDS: ACETAMINOPHEN 325 MG TABLET PO PRN (20:04)
[2018-02-08] MEDS: CLINDAMYCIN 900 MG/D5% WATER 50 ML IV SCH (20:05)
[2018-02-08 23:16] VITALS: BP 103/54
[2018-02-09 01:52] LABS: APPEARANCE,URINE CLEAR (CLEAR); BILIRUBIN,URINE NEGATIVE (NEGATIVE); GLUCOSE, URINE (UA) NEGATIVE (NEGATIVE); KETONES,URINE NEGATIVE (NEGATIVE); LEUKOCYTE ESTERASE ,URINE NEGATIVE (NEGATIVE); NITRATE,URINE NEGATIVE (NEGATIVE); OCCULT BLOOD,URINE NEGATIVE (NEGATIVE); PH,URINE 5.5 (5.0-8.0); PROTEIN,URINE NEGATIVE (NEGATIVE)
[2018-02-09 02:13] LABS: RBC,URINE None Seen /HPF (0-2); WBC,URINE 0-2 /HPF (0-5)
[2018-02-09 02:14] LABS: BACTERIA,URINE None Seen /HPF (None Seen); SQUAMOUS EPITHELIAL CELL,UR Rare /LPF (None Seen)
[2018-02-09] MEDS: ALBUTEROL SULFATE 2.5 MG/0.5 ML NEB SOLUTION NEB SCH ×5 (02:51→23:39)
[2018-02-09] MEDS: IPRATROPIUM BROMIDE 0.5 MG/2.5 ML NEB SOLUTION NEB SCH ×5 (02:51→23:40)
[2018-02-09 04:09] VITALS: BP 110/58
[2018-02-09] MEDS: CLINDAMYCIN 900 MG/D5% WATER 50 ML IV SCH ×3 (05:29→19:42)
[2018-02-09] MEDS: PANTOPRAZOLE SODIUM 40 MG DR TABLET PO SCH (06:07)
[2018-02-09 07:59] LABS: BASOPHILS % (AUTO) 0.2 % (0.0-2.0); EOSINOPHILS % (AUTO) 0.1 % (1.0-6.0); HEMATOCRIT 32.5 % (41-53); HEMOGLOBIN 11.2 g/dL (13.5-17.5); LYMPHOCYTES # (AUTO) 0.9 K/uL (1.0-4.8); LYMPHOCYTES % (AUTO) 4.9 % (22.0-44.0); MEAN CORPUSCULAR HEMOGLOBIN 33.6 pg (26.0-34.0); MEAN CORPUSCULAR HGB CONC 34.5 G/dL (31.0-37.0); MEAN CORPUSCULAR VOLUME 97 fL (80-100); MONOCYTES # (AUTO) 0.8 K/uL (0.1-1.0); MONOCYTES % (AUTO) 4.5 % (2.0-9.0); NEUTROPHILS # (AUTO) 16.4 K/uL (1.8-7.7); RED BLOOD CELL COUNT(AUTO) 3.34 MIL/uL (4.50-5.90); RED CELL DISTRIBUTION WIDTH 15.1 % (11.5-14.5)
[2018-02-09 08:04] LABS: NEUTROPHILS % (AUTO) 90.3 % (40.0-70.0); PLATELET COUNT (AUTO) 98 K/uL (150-450)
[2018-02-09 08:06] LABS: CALCIUM, TOTAL 7.2 mg/dL (8.8-10.5); CREATININE 1.27 mg/dL (0.60-1.30); POTASSIUM 3.8 mmol/L (3.5-5.1)
[2018-02-09 08:22] VITALS: BP 112/65
[2018-02-09] MEDS: ATORVASTATIN CALCIUM 20 MG TABLET PO SCH (08:51)
[2018-02-09] MEDS: VANCOMYCIN HCL 1 GM/D5% WATER 200 ML IV SCH ×2 (08:51→20:46)
[2018-02-09] MEDS: CARVEDILOL 6.25 MG TABLET PO SCH ×2 (08:51→21:00)
[2018-02-09] MEDS: LEVOFLOXACIN 500 MG TABLET PO SCH (08:51)
[2018-02-09] MEDS: CHOLECALCIFEROL (VIT D3) 1,000 UNITS TABLET PO SCH (08:51)
[2018-02-09] MEDS: ASPIRIN 81 MG EC TABLET PO SCH (08:52)
[2018-02-09] MEDS: DOCUSATE SODIUM 100 MG CAPSULE PO SCH ×2 (08:52→20:44)
[2018-02-09 11:31] VITALS: BP 128/58
[2018-02-09 15:20] VITALS: BP 126/74
[2018-02-09 19:53] VITALS: BP 119/58
[2018-02-09] MEDS: HYDROCODONE/ACETAMINOPHEN 5-325 MG TABLET PO PRN (20:45)
[2018-02-09 23:39] VITALS: BP 108/61
[2018-02-10] MEDS: CLINDAMYCIN 900 MG/D5% WATER 50 ML IV SCH ×3 (04:29→19:37)
[2018-02-10 04:37] VITALS: BP 122/65
[2018-02-10] MEDS: PANTOPRAZOLE SODIUM 40 MG DR TABLET PO SCH (05:53)
[2018-02-10 07:11] LABS: ANION GAP 5 mmol/L (8-16); CALCIUM, TOTAL 7.2 mg/dL (8.8-10.5); CARBON DIOXIDE 28 mmol/L (22-29); CHLORIDE 98 mmol/L (98-107); CREATININE 1.09 mg/dL (0.60-1.30); GLOMERULAR FILTR. RATE CALC > 60 mL/min (>60); GLUCOSE,RANDOM 88 mg/dL (70-110); SODIUM SERUM 131 mmol/L (136-145); UREA NITROGEN, BLOOD 11 mg/dL (7-18); VANCOMYCIN,RANDOM 20.2 mcg/mL (25.0-50.0)
[2018-02-10] MEDS: IPRATROPIUM BROMIDE 0.5 MG/2.5 ML NEB SOLUTION NEB SCH ×3 (07:34→22:19)
[2018-02-10] MEDS: ALBUTEROL SULFATE 2.5 MG/0.5 ML NEB SOLUTION NEB SCH ×3 (07:34→22:18)
[2018-02-10] MEDS: ASPIRIN 81 MG EC TABLET PO SCH (08:23)
[2018-02-10] MEDS: CARVEDILOL 6.25 MG TABLET PO SCH ×2 (08:23→20:16)
[2018-02-10] MEDS: LEVOFLOXACIN 500 MG TABLET PO SCH (08:23)
[2018-02-10] MEDS: CHOLECALCIFEROL (VIT D3) 1,000 UNITS TABLET PO SCH (08:23)
[2018-02-10] MEDS: ATORVASTATIN CALCIUM 20 MG TABLET PO SCH (08:24)
[2018-02-10] MEDS: DOCUSATE SODIUM 100 MG CAPSULE PO SCH ×2 (08:24→20:16)
[2018-02-10] MEDS: VANCOMYCIN HCL 1 GM/D5% WATER 200 ML IV SCH ×2 (08:24→20:16)
[2018-02-10 09:43] VITALS: BP 133/78
[2018-02-10 11:34] VITALS: BP 94/54
[2018-02-10 16:00] VITALS: BP 123/72
[2018-02-10 19:42] VITALS: BP 122/62
[2018-02-10] MEDS: TRIAMCINOLONE 0.1% 15 GM OINTMENT TP SCH (21:31)
[2018-02-10] MEDS: HYDROCODONE/ACETAMINOPHEN 5-325 MG TABLET PO PRN (22:00)
[2018-02-10 22:56] LABS: APPEARANCE,URINE CLEAR (CLEAR); BILIRUBIN,URINE NEGATIVE (NEGATIVE); GLUCOSE, URINE (UA) NEGATIVE (NEGATIVE); KETONES,URINE NEGATIVE (NEGATIVE); LEUKOCYTE ESTERASE ,URINE NEGATIVE (NEGATIVE); NITRATE,URINE NEGATIVE (NEGATIVE); OCCULT BLOOD,URINE NEGATIVE (NEGATIVE); PROTEIN,URINE NEGATIVE (NEGATIVE)
[2018-02-10 23:35] VITALS: BP 133/63
[2018-02-11] MEDS: IPRATROPIUM BROMIDE 0.5 MG/2.5 ML NEB SOLUTION NEB SCH ×4 (02:00→20:00)
[2018-02-11] MEDS: ALBUTEROL SULFATE 2.5 MG/0.5 ML NEB SOLUTION NEB SCH ×4 (02:00→20:00)
[2018-02-11] MEDS: CLINDAMYCIN 900 MG/D5% WATER 50 ML IV SCH ×2 (04:07→11:52)
[2018-02-11 04:46] VITALS: BP 127/64
[2018-02-11 06:33] LABS: BASOPHILS % (AUTO) 0.2 % (0.0-2.0); EOSINOPHILS % (AUTO) 0.6 % (1.0-6.0); HEMATOCRIT 30.5 % (41-53); HEMOGLOBIN 10.6 g/dL (13.5-17.5); LYMPHOCYTES # (AUTO) 1.1 K/uL (1.0-4.8); LYMPHOCYTES % (AUTO) 14.2 % (22.0-44.0); MEAN CORPUSCULAR HEMOGLOBIN 33.6 pg (26.0-34.0); MEAN CORPUSCULAR HGB CONC 34.8 G/dL (31.0-37.0); MEAN CORPUSCULAR VOLUME 97 fL (80-100); MONOCYTES # (AUTO) 0.8 K/uL (0.1-1.0); MONOCYTES % (AUTO) 9.7 % (2.0-9.0); NEUTROPHILS % (AUTO) 75.3 % (40.0-70.0); PLATELET COUNT (AUTO) 101 K/uL (150-450); RED BLOOD CELL COUNT(AUTO) 3.16 MIL/uL (4.50-5.90); RED CELL DISTRIBUTION WIDTH 14.9 % (11.5-14.5)
[2018-02-11 06:40] LABS: ANION GAP 4 mmol/L (8-16); CALCIUM, TOTAL 7.3 mg/dL (8.8-10.5); CARBON DIOXIDE 29 mmol/L (22-29); CHLORIDE 100 mmol/L (98-107); GLOMERULAR FILTR. RATE CALC > 60 mL/min (>60); GLUCOSE,RANDOM 92 mg/dL (70-110); POTASSIUM 4.2 mmol/L (3.5-5.1); SODIUM SERUM 133 mmol/L (136-145); UREA NITROGEN, BLOOD 9 mg/dL (7-18)
[2018-02-11 07:08] VITALS: BP 112/72
[2018-02-11 08:25] LABS: D-DIMER 0.68 mg/L FEU (0.00-0.50); INR 0.9 (0.9-1.1); PROTHROMBIN TIME 9.9 SEC (9.4-11.6)
[2018-02-11 08:30] LABS: FIBRINOGEN 545 mg/dL (200-400)
[2018-02-11] MEDS: CARVEDILOL 6.25 MG TABLET PO SCH ×2 (08:52→20:01)
[2018-02-11] MEDS: LEVOFLOXACIN 500 MG TABLET PO SCH (08:52)
[2018-02-11] MEDS: MULTIVITAMINS WITH MINERALS, THERAPEUTIC TABLET PO SCH (08:52)
[2018-02-11] MEDS: ATORVASTATIN CALCIUM 20 MG TABLET PO SCH (08:52)
[2018-02-11] MEDS: DOCUSATE SODIUM 100 MG CAPSULE PO SCH ×2 (08:52→20:01)
[2018-02-11] MEDS: PANTOPRAZOLE SODIUM 40 MG DR TABLET PO SCH (08:52)
[2018-02-11] MEDS: CHOLECALCIFEROL (VIT D3) 1,000 UNITS TABLET PO SCH (08:53)
[2018-02-11] MEDS: VANCOMYCIN HCL 1 GM/D5% WATER 200 ML IV SCH ×2 (08:53→20:01)
[2018-02-11] MEDS: ASPIRIN 81 MG EC TABLET PO SCH (08:53)
[2018-02-11] MEDS: TRIAMCINOLONE 0.1% 15 GM OINTMENT TP SCH ×2 (10:21→20:03)
[2018-02-11 11:42] VITALS: BP 122/85
[2018-02-11] MEDS: LACTOBAC ACID/BULG/BIFID/THERM TABLET PO SCH ×2 (11:52→20:01)
[2018-02-11 15:17] VITALS: BP 133/75
[2018-02-11 19:51] VITALS: BP 149/76
[2018-02-11] MEDS ORDERED: CefTRIAXone SODIUM 2 GM in DEXTROSE 5%-WATER 20 ML IV SCH (22:00)
[2018-02-11] MEDS: HYDROCODONE/ACETAMINOPHEN 5-325 MG TABLET PO PRN (22:31)
[2018-02-11 23:36] VITALS: BP 127/69
[2018-02-12] MEDS: IPRATROPIUM BROMIDE 0.5 MG/2.5 ML NEB SOLUTION NEB SCH ×3 (02:48→14:34)
[2018-02-12] MEDS: ALBUTEROL SULFATE 2.5 MG/0.5 ML NEB SOLUTION NEB SCH ×3 (02:48→14:34)
[2018-02-12 04:38] VITALS: BP 111/59
[2018-02-12] MEDS: PANTOPRAZOLE SODIUM 40 MG DR TABLET PO SCH (06:12)
[2018-02-12 06:32] LABS: BASOPHILS % (AUTO) 0.1 % (0.0-2.0); EOSINOPHILS % (AUTO) 0.6 % (1.0-6.0); HEMATOCRIT 31.5 % (41-53); HEMOGLOBIN 11.1 g/dL (13.5-17.5); LYMPHOCYTES % (AUTO) 15.2 % (22.0-44.0); MEAN CORPUSCULAR HEMOGLOBIN 33.9 pg (26.0-34.0); MEAN CORPUSCULAR HGB CONC 35.2 G/dL (31.0-37.0); MEAN CORPUSCULAR VOLUME 96 fL (80-100); MONOCYTES # (AUTO) 0.8 K/uL (0.1-1.0); NEUTROPHILS % (AUTO) 73.1 % (40.0-70.0); PLATELET COUNT (AUTO) 101 K/uL (150-450); RED BLOOD CELL COUNT(AUTO) 3.26 MIL/uL (4.50-5.90); RED CELL DISTRIBUTION WIDTH 14.8 % (11.5-14.5)
[2018-02-12 06:57] LABS: ANION GAP 1 mmol/L (8-16); CALCIUM, TOTAL 7.4 mg/dL (8.8-10.5); CARBON DIOXIDE 30 mmol/L (22-29); CHLORIDE 103 mmol/L (98-107); CREATININE 1.02 mg/dL (0.60-1.30); GLOMERULAR FILTR. RATE CALC > 60 mL/min (>60); GLUCOSE,RANDOM 91 mg/dL (70-110); POTASSIUM 4.2 mmol/L (3.5-5.1); SODIUM SERUM 134 mmol/L (136-145); UREA NITROGEN, BLOOD 6 mg/dL (7-18)
[2018-02-12 07:05] VITALS: BP 142/88
[2018-02-12] MEDS: ASPIRIN 81 MG EC TABLET PO SCH (08:49)
[2018-02-12] MEDS: LACTOBAC ACID/BULG/BIFID/THERM TABLET PO SCH (08:49)
[2018-02-12] MEDS: MULTIVITAMINS WITH MINERALS, THERAPEUTIC TABLET PO SCH (08:49)
[2018-02-12] MEDS: ATORVASTATIN CALCIUM 20 MG TABLET PO SCH (08:50)
[2018-02-12] MEDS: CARVEDILOL 6.25 MG TABLET PO SCH (08:51)
[2018-02-12] MEDS: CHOLECALCIFEROL (VIT D3) 1,000 UNITS TABLET PO SCH (08:51)
[2018-02-12] MEDS: TRIAMCINOLONE 0.1% 15 GM OINTMENT TP SCH (08:52)
[2018-02-12] MEDS: DOCUSATE SODIUM 100 MG CAPSULE PO SCH (08:52)
[2018-02-12 12:07] VITALS: BP 133/70
[2018-02-12 15:09] VITALS: BP 133/80
[2018-02-12] MEDS: HYDROCODONE/ACETAMINOPHEN 5-325 MG TABLET PO PRN (15:35)
== END 2018-02-12 18:50 | DRG 872 ==
LOC: EMS 02:30 → 6N 05:30
PROVIDERS: ADMIT Internal Medicine; ATTEND Internal Medicine
DX: A41.9 Sepsis, unspecified organism (principal); L03.113 Cellulitis of right upper limb; I50.32 Chronic diastolic (congestive) heart failure; F17.210 Nicotine dependence, cigarettes, uncomplicated; J44.9 Chronic obstructive pulmonary disease, unspecified; I25.10 Atherosclerotic heart disease of native coronary artery without angina pectoris; I11.0 Hypertensive heart disease with heart failure; Z96.652 Presence of left artificial knee joint; I48.0 Paroxysmal atrial fibrillation; D69.59 Other secondary thrombocytopenia; B95.4 Other streptococcus as the cause of diseases classified elsewhere; I49.5 Sick sinus syndrome; S51.011A Laceration without foreign body of right elbow, initial encounter; X58.XXXA Exposure to other specified factors, initial encounter; Z95.810 Presence of automatic (implantable) cardiac defibrillator; Z82.49 Family history of ischemic heart disease and other diseases of the circulatory system; Z71.6 Tobacco abuse counseling; Y93.89 Activity, other specified; Y92.89 Other specified places as the place of occurrence of the external cause; Y99.8 Other external cause status
CPT/HCPCS: 73201; 83605; 83735; 84145; 85300; 85362; 85379; 85384; 85651; 86038; 86140; 86430; 87040; 87070; 87081; 87147; 87205; 93005; 93971; 94640; 96365; 96366; 96367; 97116; 97161; 97165; 97530; 97535; 99285; J0690; J0696; J3370; J3490; J7040; J7050; J7060

== ENCOUNTER → 2019-10-15 | Outpatient (CLI) | payer MEDICARE, MEDICAID ==
[~2019-10-15] VITALS: Ht 185.4 cm; Wt 93.5 kg
[~2019-10-15] MED LIST changes: +ACET650T9 PO; +AMLO5TAB9 PO; +APIX5TAB PO; -ASPI-1188 PO; +ASPI-1522 PO; +CHOL100018 PO; +DOCU-275 PO; +FURO20 PO; -VITAD1000 PO; +[UNRECOGNIZED DRUG - CODE] PO
[2019-10-15 11:05] VITALS: BP 120/77
== END | disposition home or self-care (01) ==
LOC: SRCNTR 10:53
PROVIDERS: ATTEND Internal Medicine Clinical Cardiac Electrophysiology
DX: Z45.018 Encounter for adjustment and management of other part of cardiac pacemaker (principal); A41.9 Sepsis, unspecified organism; I48.0 Paroxysmal atrial fibrillation; I50.9 Heart failure, unspecified; L03.818 Cellulitis of other sites
CPT/HCPCS: G0463

== ENCOUNTER → 2019-10-26 | Outpatient (CLI) | payer MEDICARE, MEDICAID ==
[~2019-10-26] VITALS: Ht 182.9 cm; Wt 95.0 kg
[2019-10-26 10:08] VITALS: BP 126/72
== END | disposition home or self-care (01) ==
LOC: SRCNTR 10:07
PROVIDERS: ATTEND Internal Medicine Clinical Cardiac Electrophysiology
DX: Z45.018 Encounter for adjustment and management of other part of cardiac pacemaker (principal); I11.0 Hypertensive heart disease with heart failure; I50.22 Chronic systolic (congestive) heart failure; I25.10 Atherosclerotic heart disease of native coronary artery without angina pectoris; I42.8 Other cardiomyopathies; I48.91 Unspecified atrial fibrillation
CPT/HCPCS: G0463

== ENCOUNTER 2019-11-01 09:51 | Day surgery (SDC) | payer MEDICARE, MEDICAID ==
[~2019-11-01] VITALS: Ht 182.9 cm; Wt 94.1 kg
[~2019-11-01 09:51] MED LIST changes: -ACET650T9 PO; -AMLO5TAB9 PO; -APIX5TAB PO; -DOCU-275 PO; -FURO20 PO; -[UNRECOGNIZED DRUG - CODE] PO
[2019-11-01] MEDS ORDERED: MIDAZOLAM HCL 2 MG/2 ML VIAL IVP ONE (09:52)
[2019-11-01] MEDS ORDERED: FentaNYL CITRATE-PF 100 MCG/2 ML VIAL IVP ONE (09:52)
[2019-11-01] MEDS ORDERED: SODIUM CHLORIDE 0.9% 1,000 ML IV ONE (10:00)
[2019-11-01] MEDS ORDERED: ACET650T9 PO (10:21)
[2019-11-01] MEDS ORDERED: AMLO5TAB9 PO (10:21)
[2019-11-01] MEDS ORDERED: FURO20 PO (10:21)
[2019-11-01] MEDS ORDERED: APIX5TAB PO (10:21)
[2019-11-01] MEDS ORDERED: [UNRECOGNIZED DRUG - CODE] PO (10:21)
[2019-11-01] MEDS ORDERED: SODIUM CHLORIDE 0.9% 1,000 ML ONE (10:35)
[2019-11-01 10:40] LABS: BASOPHILS % (AUTO) 1.2 % (0.0-2.0); EOSINOPHILS % (AUTO) 1.2 % (1.0-6.0); HEMATOCRIT 46.4 % (41-53); HEMOGLOBIN 15.7 g/dL (13.5-17.5); LYMPHOCYTES # (AUTO) 1.4 K/uL (1.0-4.8); LYMPHOCYTES % (AUTO) 22.2 % (22.0-44.0); MEAN CORPUSCULAR HEMOGLOBIN 34.3 pg (26.0-34.0); MEAN CORPUSCULAR HGB CONC 33.9 G/dL (31.0-37.0); MEAN CORPUSCULAR VOLUME 101 fL (80-100); MONOCYTES # (AUTO) 0.6 K/uL (0.1-1.0); MONOCYTES % (AUTO) 9.1 % (2.0-9.0); NEUTROPHILS # (AUTO) 4.2 K/uL (1.8-7.7); NEUTROPHILS % (AUTO) 66.3 % (40.0-70.0); PLATELET COUNT (AUTO) 159 K/uL (150-450); RED BLOOD CELL COUNT(AUTO) 4.59 MIL/uL (4.50-5.90); RED CELL DISTRIBUTION WIDTH 14.4 % (11.5-14.5)
[2019-11-01 10:50] LABS: ANION GAP 12 mmol/L (8-16); CALCIUM, TOTAL 9.2 mg/dL (8.8-10.5); CARBON DIOXIDE 27 mmol/L (22-29); CHLORIDE 97 mmol/L (98-107); CREATININE 0.95 mg/dL (0.60-1.30); GLUCOSE,RANDOM 109 mg/dL (70-110); POTASSIUM 3.9 mmol/L (3.5-5.1); SODIUM SERUM 136 mmol/L (136-145); UREA NITROGEN, BLOOD 12 mg/dL (7-18)
[2019-11-01 10:51] LABS: GLOMERULAR FILTR. RATE CALC > 60 mL/min (>60)
[2019-11-01 10:54] LABS: PROTHROMBIN TIME 10.4 SEC (9.4-11.6)
[2019-11-01 10:56] LABS: ALANINE AMINOTRANSFERASE 36 U/L (12-78); ALBUMIN 4.3 g/dL (3.4-5.0); ALKALINE PHOSPHATASE 71 U/L (46-116); ASPARTATE AMINOTRANSFERASE 36 U/L (15-37); BILIRUBIN,TOTAL 1.8 mg/dL (0.1-1.0); TOTAL PROTEIN, SERUM 7.4 g/dL (6.4-8.2)
[2019-11-01] MEDS ORDERED: SODIUM BICARBONATE 50 MEQ/50 ML VIAL ONE (11:41)
[2019-11-01] MEDS ORDERED: LIDOCAINE/PF 1% 30 ML VIAL ONE (11:41)
[2019-11-01] MEDS ORDERED: PROPOFOL 1000 MG/ISO-OSM 100 ML IV ONE (11:42)
[2019-11-01 11:54] VITALS: BP 150/89
[2019-11-01] MEDS ORDERED: LIDOCAINE 1% 30 ML/SOD BICARB 8.4% 4 ML SQ ONE (12:15)
[2019-11-01] MEDS ORDERED: BUPIVACAINE LIPOSOME/PF 1.3%-13.3MG/ML SUSPENSION 10 ML VIAL INJ ONE (12:15)
[2019-11-01] MEDS ORDERED: DOCU-275 PO (12:30)
[2019-11-01] MEDS ORDERED: ACETAMINOPHEN 325 MG TABLET PO PRN (13:15)
[2019-11-01 13:31] VITALS: BP 107/71
[2019-11-01] MEDS ORDERED: CeFAZolin 1 GM/DEXTROSE 50 ML IV ONE ×2 (13:55→16:30)
== END 2019-11-01 17:00 | disposition home or self-care (01) ==
LOC: SDS 09:51
PROVIDERS: ATTEND Internal Medicine Clinical Cardiac Electrophysiology
DX: Z45.02 Encounter for adjustment and management of automatic implantable cardiac defibrillator (principal); I11.0 Hypertensive heart disease with heart failure; I50.9 Heart failure, unspecified; I48.91 Unspecified atrial fibrillation; I48.20 Chronic atrial fibrillation, unspecified; E78.00 Pure hypercholesterolemia, unspecified; F17.290 Nicotine dependence, other tobacco product, uncomplicated; Z96.659 Presence of unspecified artificial knee joint; Z98.890 Other specified postprocedural states; Z79.899 Other long term (current) drug therapy
CPT/HCPCS: 33263; 36415; 80053; 83735; 85025; 85610; 85730; 88300; 93005; C1721; J0690; J2250; J2704; J3010; J3490 ×2; J7030; 33240

== ENCOUNTER → 2019-11-02 | Outpatient (CLI) | payer MEDICARE, MEDICAID ==
[~2019-11-02] VITALS: Ht 182.9 cm; Wt 93.0 kg
[~2019-11-02] MED LIST changes: -ACET-2247 PO; +ACET650T9 PO; +AMLO5TAB9 PO; +APIX5TAB PO; -ASPI-1522 PO; -ATOR20TA86 PO; -CHOL100018 PO; +DOCU-275 PO; -DSS100 PO; +FURO20 PO; -OXYC-530 PO; +[UNRECOGNIZED DRUG - CODE] PO
[2019-11-02 11:44] VITALS: BP 116/63
== END | disposition home or self-care (01) ==
LOC: SRCNTR 11:41
PROVIDERS: ATTEND Internal Medicine Clinical Cardiac Electrophysiology
DX: Z45.02 Encounter for adjustment and management of automatic implantable cardiac defibrillator (principal); I11.0 Hypertensive heart disease with heart failure; I50.9 Heart failure, unspecified; I25.10 Atherosclerotic heart disease of native coronary artery without angina pectoris
CPT/HCPCS: G0463

== ENCOUNTER → 2019-11-09 | Outpatient (CLI) | payer MEDICARE, MEDICAID ==
[~2019-11-09] VITALS: Ht 182.9 cm; Wt 94.0 kg
[2019-11-09 10:33] VITALS: BP 115/74
== END | disposition home or self-care (01) ==
LOC: SRCNTR 10:32
PROVIDERS: ATTEND Internal Medicine Clinical Cardiac Electrophysiology
DX: Z45.018 Encounter for adjustment and management of other part of cardiac pacemaker (principal); I48.91 Unspecified atrial fibrillation; I25.10 Atherosclerotic heart disease of native coronary artery without angina pectoris; I11.0 Hypertensive heart disease with heart failure; I50.9 Heart failure, unspecified; J44.9 Chronic obstructive pulmonary disease, unspecified
CPT/HCPCS: G0463

== ENCOUNTER 2021-10-06 04:45 | Inpatient (IN) | payer MEDICARE, MEDICAID ==
[~2021-10-06] VITALS: Ht 182.9 cm; Wt 83.6 kg
[~2021-10-06 04:45] MED LIST changes: +AMLO-257 PO; -AMLO5TAB9 PO; +DOCU-270 PO; -DOCU-275 PO; +PANT-31 PO; -PANT40TA25 PO
[2021-10-06 05:32] LABS: COVID AG,FIA SOURCE NASAL SWAB
[2021-10-06 05:34] LABS: BASOPHILS % (AUTO) 0.4 % (0.0-2.0); EOSINOPHILS % (AUTO) 0.3 % (1.0-6.0); HEMATOCRIT 39.4 % (41-53); HEMOGLOBIN 13.5 g/dL (13.5-17.5); LYMPHOCYTES # (AUTO) 0.8 K/uL (1.0-4.8); LYMPHOCYTES % (AUTO) 19.8 % (22.0-44.0); MEAN CORPUSCULAR HEMOGLOBIN 34.7 pg (26.0-34.0); MEAN CORPUSCULAR HGB CONC 34.2 G/dL (31.0-37.0); MEAN CORPUSCULAR VOLUME 102 fL (80-100); MONOCYTES # (AUTO) 0.4 K/uL (0.1-1.0); MONOCYTES % (AUTO) 9.3 % (2.0-9.0); NEUTROPHILS # (AUTO) 2.8 K/uL (1.8-7.7); NEUTROPHILS % (AUTO) 70.2 % (40.0-70.0); PLATELET COUNT (AUTO) 152 K/uL (150-450); RED BLOOD CELL COUNT(AUTO) 3.88 MIL/uL (4.50-5.90); RED CELL DISTRIBUTION WIDTH 15.3 % (11.5-14.5)
[2021-10-06 05:51] LABS: ALBUMIN 3.3 g/dL (3.4-5.0); BILIRUBIN,TOTAL 1.1 mg/dL (0.1-1.0); CALCIUM, TOTAL 8.1 mg/dL (8.8-10.5); CREATININE 1.6 mg/dL (0.60-1.30); TOTAL PROTEIN, SERUM 6.8 g/dL (6.4-8.2)
[2021-10-06 06:03] LABS: POTASSIUM 3.1 mmol/L (3.5-5.1)
[2021-10-06] MEDS ORDERED: AMLO-257 PO (06:06)
[2021-10-06] MEDS ORDERED: ASPI-1450 PO (06:06)
[2021-10-06] MEDS ORDERED: POTASSIUM CHLORIDE 20 MEQ ER TABLET PO ONE (06:15)
[2021-10-06] MEDS ORDERED: SODIUM CHLORIDE 0.9% 1,000 ML IV ONE (06:15)
[2021-10-06] MEDS ORDERED: ACETAMINOPHEN 325 MG TABLET PO PRN (08:15)
[2021-10-06] MEDS ORDERED: MAGNESIUM HYDROXIDE SUSPENSION 30 ML UDCUP PO PRN (08:15)
[2021-10-06] MEDS: HEPARIN SODIUM,PORCINE 5,000 UNITS/ML VIAL SQ SCH ×2 (08:34→21:54)
[2021-10-06] MEDS: FAMOTIDINE 20 MG TABLET PO SCH (08:42)
[2021-10-06] MEDS: ASPIRIN 81 MG CHEWABLE TABLET PO SCH (08:42)
[2021-10-06] MEDS ORDERED: CARVEDILOL 3.125 MG TABLET PO SCH (09:00)
[2021-10-06 13:37] LABS: APPEARANCE,URINE CLEAR (CLEAR); BILIRUBIN,URINE NEGATIVE (NEGATIVE); GLUCOSE, URINE (UA) NEGATIVE (NEGATIVE); KETONES,URINE 40 mg/dL (NEGATIVE); LEUKOCYTE ESTERASE ,URINE NEGATIVE (NEGATIVE); NITRATE,URINE NEGATIVE (NEGATIVE); OCCULT BLOOD,URINE NEGATIVE (NEGATIVE); PROTEIN,URINE NEGATIVE (NEGATIVE)
[2021-10-06 16:56] VITALS: BP 129/90
[2021-10-06 20:27] VITALS: BP 126/79
[2021-10-06] MEDS: BENZONATATE 100 MG CAPSULE PO PRN (21:45)
[2021-10-06] MEDS: ATORVASTATIN CALCIUM 20 MG TABLET PO SCH (21:45)
[2021-10-06] MEDS: CARVEDILOL 3.125 MG TABLET PO SCH (21:45)
[2021-10-07 04:28] VITALS: BP 131/78
[2021-10-07 07:54] VITALS: BP 115/80
[2021-10-07] MEDS: ASPIRIN 81 MG CHEWABLE TABLET PO SCH (08:46)
[2021-10-07] MEDS: FAMOTIDINE 20 MG TABLET PO SCH (08:47)
[2021-10-07] MEDS: CARVEDILOL 3.125 MG TABLET PO SCH ×2 (08:47→20:17)
[2021-10-07] MEDS: HEPARIN SODIUM,PORCINE 5,000 UNITS/ML VIAL SQ SCH ×3 (08:47→23:13)
[2021-10-07] MEDS: BENZONATATE 100 MG CAPSULE PO PRN ×3 (08:50→22:10)
[2021-10-07] MEDS ORDERED: POTASSIUM CHLORIDE 20 MEQ ER TABLET PO ONE (11:15)
[2021-10-07 15:48] VITALS: BP 116/75
[2021-10-07 19:35] VITALS: BP 137/79
[2021-10-07] MEDS: ATORVASTATIN CALCIUM 20 MG TABLET PO SCH (20:18)
[2021-10-08 04:05] VITALS: BP 117/81
[2021-10-08 07:25] LABS: ANION GAP 4 mmol/L (8-16); CALCIUM, TOTAL 7.9 mg/dL (8.8-10.5); CARBON DIOXIDE 34 mmol/L (22-29); CHLORIDE 96 mmol/L (98-107); CREATININE 1.12 mg/dL (0.60-1.30); GLOMERULAR FILTR. RATE CALC > 60 mL/min (>60); GLUCOSE,RANDOM 84 mg/dL (70-110); POTASSIUM 3.4 mmol/L (3.5-5.1); SODIUM SERUM 134 mmol/L (136-145); UREA NITROGEN, BLOOD 12 mg/dL (7-18)
[2021-10-08 08:00] VITALS: BP 120/70
[2021-10-08] MEDS: CARVEDILOL 3.125 MG TABLET PO SCH ×2 (08:15→20:36)
[2021-10-08] MEDS: BENZONATATE 100 MG CAPSULE PO PRN ×2 (08:16→15:19)
[2021-10-08] MEDS: FAMOTIDINE 20 MG TABLET PO SCH (08:16)
[2021-10-08] MEDS: ASPIRIN 81 MG CHEWABLE TABLET PO SCH (08:16)
[2021-10-08] MEDS: HEPARIN SODIUM,PORCINE 5,000 UNITS/ML VIAL SQ SCH ×3 (08:17→23:36)
[2021-10-08] MEDS ORDERED: POTASSIUM CHLORIDE 20 MEQ ER TABLET PO PRN (09:45)
[2021-10-08] MEDS ORDERED: BENZONATATE 100 MG CAPSULE PO PRN (09:45)
[2021-10-08] MEDS ORDERED: POTASSIUM CHL 10 MEQ/WATER 50 ML IV PRN (09:45)
[2021-10-08 15:30] VITALS: BP 128/83
[2021-10-08 20:10] VITALS: BP 105/75
[2021-10-08] MEDS: ATORVASTATIN CALCIUM 20 MG TABLET PO SCH (20:36)
[2021-10-09 05:17] VITALS: BP 121/80
[2021-10-09] MEDS: HEPARIN SODIUM,PORCINE 5,000 UNITS/ML VIAL SQ SCH ×2 (08:39→16:17)
[2021-10-09] MEDS: BENZONATATE 100 MG CAPSULE PO PRN (08:40)
[2021-10-09] MEDS: ASPIRIN 81 MG CHEWABLE TABLET PO SCH (08:40)
[2021-10-09] MEDS: CARVEDILOL 3.125 MG TABLET PO SCH (08:40)
[2021-10-09] MEDS: FAMOTIDINE 20 MG TABLET PO SCH (08:40)
[2021-10-09 08:48] VITALS: BP 95/62
[2021-10-09 14:34] VITALS: BP 114/81
[2021-10-09 16:44] VITALS: BP 120/65
== END 2021-10-09 18:00 | disposition home health service (06) | DRG 683 ==
LOC: EMS 04:48 → 6N 08:04
PROVIDERS: ADMIT Internal Medicine; ATTEND Internal Medicine
DX: N17.9 Acute kidney failure, unspecified (principal); I42.8 Other cardiomyopathies; E87.6 Hypokalemia; F17.200 Nicotine dependence, unspecified, uncomplicated; I25.10 Atherosclerotic heart disease of native coronary artery without angina pectoris; I48.91 Unspecified atrial fibrillation; F17.210 Nicotine dependence, cigarettes, uncomplicated; Z96.652 Presence of left artificial knee joint; W06.XXXA Fall from bed, initial encounter; Z20.822 Contact with and (suspected) exposure to COVID-19; I50.9 Heart failure, unspecified; I11.0 Hypertensive heart disease with heart failure; J44.9 Chronic obstructive pulmonary disease, unspecified; Z95.810 Presence of automatic (implantable) cardiac defibrillator; Z82.49 Family history of ischemic heart disease and other diseases of the circulatory system; Y93.89 Activity, other specified; Y92.89 Other specified places as the place of occurrence of the external cause; Y99.8 Other external cause status
CPT/HCPCS: 70450; 71045; 80048; 80053; 81003; 84132; 84484; 85025; 93005; 93306; 97110; 97116; 97162; 99285; J1644; J7030; 36415-L1; 36415-TC